=== PATIENT | female | born 1985 | race Caucasian/White ===

== ENCOUNTER 2017-03-15 05:00 | Emergency (ER) | payer OTHER ==
[~2017-03-15] VITALS: Ht 170.2 cm; Wt 88.5 kg
[~2017-03-15 05:00] MED LIST: AMIT50 PO; AMOX500 PO; AZIT250 PO; Amoxicillin500 MG PO; CEPH500 PO; CIPR500 PO; CYCL10 PO; DOXY100T53 PO; FLUO10 PO; Flagyl500 MG PO; HYDACE10B PO; HYDACE5 PO; IBUP600 PO; IBUP800 PO; LEVFLO500 PO; METR500 PO; MISO100; MULVITB&C PO; MULVITMINE PO; NAPR500; NAPR500 PO; NAPR550 PO; NITR100; OXYACE5T; OXYACE5T PO; OXYACE7.5T; PENVK500 PO; PHENA100 PO; PHENA200 PO; PRED10 PO; PRED20 PO; PRENZ PO; PROM25 PO; PROMETRIUM; RXCYCL10 PO; RXNAPNA550 PO; RXONDA4ODT MM; RXOXYACE PO; RXPHEN200 PO; STOMUL PO; SULTRIDS PO; TRAM50 PO; Vibramycin100 MG PO
[2017-03-15 05:46] LABS: BASOPHILS ABSOLUTE AUTO 0.04 K/mm3 (0.00-0.23); BASOPHILS PERCENT AUTO 0 % (0-2); EOSINOPHILS ABSOLUTE AUTO 0.05 K/mm3 (0.00-0.68); EOSINOPHILS PERCENT AUTO 1 % (0-6); Hematocrit 38.1 % (33.0-51.0); Hemoglobin 13.1 g/dL (11.5-16.0); IMMATURE GRAN ABSOLUTE AUTO 0.04 K/mm3 (0.00-0.10); IMMATURE GRAN PERCENT AUTO 0 % (0-1); LYMPHOCYTES ABSOLUTE AUTO 2.25 K/mm3 (0.84-5.20); LYMPHOCYTES PERCENT AUTO 21 % (21-46); MONOCYTES ABSOLUTE AUTO 0.87 K/mm3 (0.16-1.47); MONOCYTES PERCENT AUTO 8 % (4-13); Mean Corpuscular HGB 31.6 pg (26.0-34.0); Mean Corpuscular HGB Conc 34.4 g/dL (31.5-36.5); Mean Corpuscular Volume 92 fL (80-100); Mean Platelet Volume 10.3 fL (9.1-12.4); NEUTROPHILS ABSOLUTE AUTO 7.72 K/mm3 (1.96-9.15); NEUTROPHILS PERCENT AUTO 70 % (41-73); Platelet Count 197 K/mm3 (150-400); RDW Standard Deviation 44.2 fL (35.1-46.3); Red Blood Cell Count 4.15 M/mm3 (3.80-5.20); White Blood Cell Count 10.97 K/mm3 (4.00-11.30)
[2017-03-15 06:06] LABS: Alanine Aminotransfer (ALT/SGP 67 U/L (12-78); Albumin/Globulin Ratio 1.1 (0.8-1.8); Alk Phos 75 U/L (50-136); Anion Gap 9 mmol/L (6-16); Aspartate Aminotrans (AST/SGOT 82 U/L (12-37); Bilirubin, Total 0.5 mg/dL (0.1-1.0); Blood Urea Nitrogen 12 mg/dL (8-24); Bun/Creatinine Ratio 16.6 (12.0-20.0); CO2, Blood 26 mmol/L (21-32); Chloride, Blood 102 mmol/L (98-108); Creatinine, Blood 0.72 mg/dL (0.40-1.00); Globulin, Blood 3.7 g/dL (2.2-4.0); Glomerular Filtration Rate >60 (60-); Glucose, Blood 104 mg/dL (70-99); Sodium, Blood 137 mmol/L (136-145); Total Protein, Blood 7.7 g/dL (6.4-8.2); Troponin I <0.015 ng/mL (0.000-0.040)
[2017-03-15 06:06] LABS: Source, Urine Clean Catch
[2017-03-15 06:10] LABS: Bilirubin, Urine Neg (Neg); Blood, Urine 2+ (Neg); Glucose Qualitative, Urine Neg (Neg); Ketones, Urine 1+ (Neg); Leukocyte Esterase, Urine Neg (Neg); Nitrite, Urine Neg (Neg); Protein, Urine 2+ (Neg); Specific Gravity, Urine 1.025 (1.003-1.022); Urobilinogen, Urine 1+ (Normal)
[2017-03-15 06:27] LABS: U Amphetamine Screen Not Detected; U Barbituate Screen Not Detected; U Benzodiazapine Screen Not Detected; U Buprenorphine Screen DETECTED; U Cannabinoids Screen Not Detected; U Cocaine Screen Not Detected; U Methadone Screen Not Detected; U Methamphetamine Screen Not Detected; U Opiates Screen Not Detected; U Oxycodone Screen Not Detected; U Phencyclidine Screen Not Detected; U Propoxyphene Screen Not Detected
[2017-03-15 06:31] LABS: Appearance, Urine Cloudy (Clear); Color, Urine Yellow (P-Yellow)
[2017-03-15 06:34] LABS: Amorphous Light (0-Heavy); Red Blood Cells, Urine 0-2 /hpf (0-2); White Blood Cells, Urine Not Seen /hpf (0-5)
[2017-03-15 06:35] LABS: Bacteria Rare /hpf; Squamous Epithelial Cells Rare /hpf (Few)
== END 2017-03-15 08:01 | disposition home or self-care (01) ==
LOC: ER 05:00
PROVIDERS: Emergency Medicine
DX: R00.2 Palpitations (principal); R07.89 Other chest pain; F11.90 Opioid use, unspecified, uncomplicated; Z72.89 Other problems related to lifestyle; F17.200 Nicotine dependence, unspecified, uncomplicated; Z98.51 Tubal ligation status
CPT/HCPCS: 36415; 71046; 80053; 81001; 83880; 84484; 85025; 85379; 87086; 93005; 93010; 96374; 99283; J1885

== ENCOUNTER → 2017-05-16 | Outpatient (CLI) | payer OTHER ==
[2017-05-16 12:45] LABS: BASOPHILS ABSOLUTE AUTO 0.03 K/mm3 (0.00-0.23); BASOPHILS PERCENT AUTO 1 % (0-2); EOSINOPHILS ABSOLUTE AUTO 0.07 K/mm3 (0.00-0.68); EOSINOPHILS PERCENT AUTO 1 % (0-6); Hematocrit 41.3 % (33.0-51.0); Hemoglobin 14.2 g/dL (11.5-16.0); IMMATURE GRAN ABSOLUTE AUTO 0.01 K/mm3 (0.00-0.10); IMMATURE GRAN PERCENT AUTO 0 % (0-1); LYMPHOCYTES ABSOLUTE AUTO 1.26 K/mm3 (0.84-5.20); LYMPHOCYTES PERCENT AUTO 23 % (21-46); MONOCYTES ABSOLUTE AUTO 0.51 K/mm3 (0.16-1.47); MONOCYTES PERCENT AUTO 9 % (4-13); Mean Corpuscular HGB 32.7 pg (26.0-34.0); Mean Corpuscular HGB Conc 34.4 g/dL (31.5-36.5); Mean Corpuscular Volume 95 fL (80-100); Mean Platelet Volume 10.5 fL (9.1-12.4); NEUTROPHILS ABSOLUTE AUTO 3.67 K/mm3 (1.96-9.15); NEUTROPHILS PERCENT AUTO 66 % (41-73); Platelet Count 157 K/mm3 (150-400); RDW Standard Deviation 45.4 fL (35.1-46.3); Red Blood Cell Count 4.34 M/mm3 (3.80-5.20); White Blood Cell Count 5.55 K/mm3 (4.00-11.30)
[2017-05-16 12:54] LABS: Alanine Aminotransfer (ALT/SGP 57 U/L (12-78); Albumin, Blood 4.1 g/dL (3.4-5.0); Alk Phos 74 U/L (40-126); Anion Gap 10 mmol/L (6-16); Aspartate Aminotrans (AST/SGOT 61 U/L (12-37); Bilirubin, Total 0.5 mg/dL (0.1-1.0); Blood Urea Nitrogen 9 mg/dL (8-24); Bun/Creatinine Ratio 11.4 (12.0-20.0); CO2, Blood 29 mmol/L (21-32); Calcium, Blood 9.1 mg/dL (8.5-10.1); Chloride, Blood 102 mmol/L (98-108); Creatinine, Blood 0.79 mg/dL (0.40-1.00); Glomerular Filtration Rate >60 (60-); Glucose, Blood 99 mg/dL (70-99); Potassium, Blood 3.7 mmol/L (3.5-5.5); Sodium, Blood 141 mmol/L (136-145); Total Protein, Blood 8.1 g/dL (6.4-8.2)
== END ==
LOC: LAB EV 12:38 → LAB SHORT 12:38
PROVIDERS: Family Medicine
DX: K30 Functional dyspepsia (principal); R30.0 Dysuria
CPT/HCPCS: 80053; 83690; 85025; 87077; 87086; 87186

== ENCOUNTER → 2017-05-17 | Outpatient (CLI) | payer OTHER | END | disposition home or self-care (01) | LOC: LAB EV 09:15 | DX: K30 Functional dyspepsia (principal) | CPT/HCPCS: 87338 ==

== ENCOUNTER → 2018-01-31 | Outpatient (CLI) | payer OTHER | LOC: LAB SHORT 13:10 → LAB 13:10 | DX: R30.9 Painful micturition, unspecified (principal) | CPT/HCPCS: 87077; 87086; 87186 ==

== ENCOUNTER 2018-03-13 12:35 | Emergency (ER) | payer OTHER ==
[~2018-03-13] VITALS: Ht 170.2 cm; Wt 97.5 kg
[2018-03-13 13:11] LABS: BASOPHILS ABSOLUTE AUTO 0.03 K/mm3 (0.00-0.23); BASOPHILS PERCENT AUTO 1 % (0-2); EOSINOPHILS PERCENT AUTO 2 % (0-6); Hematocrit 38.6 % (33.0-51.0); Hemoglobin 13.2 g/dL (11.5-16.0); IMMATURE GRAN ABSOLUTE AUTO 0.01 K/mm3 (0.00-0.10); IMMATURE GRAN PERCENT AUTO 0 % (0-1); LYMPHOCYTES ABSOLUTE AUTO 2.07 K/mm3 (0.84-5.20); LYMPHOCYTES PERCENT AUTO 33 % (21-46); MONOCYTES PERCENT AUTO 6 % (4-13); Mean Corpuscular HGB 33.4 pg (26.0-34.0); Mean Corpuscular HGB Conc 34.2 g/dL (31.5-36.5); Mean Corpuscular Volume 98 fL (80-100); Mean Platelet Volume 10.4 fL (9.1-12.4); NEUTROPHILS ABSOLUTE AUTO 3.62 K/mm3 (1.96-9.15); NEUTROPHILS PERCENT AUTO 58 % (41-73); Platelet Count 167 K/mm3 (150-400); RDW Coefficient Variation 12.1 % (11.7-14.2); RDW Standard Deviation 43.8 fL (35.1-46.3); Red Blood Cell Count 3.95 M/mm3 (3.80-5.20); White Blood Cell Count 6.23 K/mm3 (4.00-11.30)
[2018-03-13 13:52] LABS: Alanine Aminotransfer (ALT/SGP 80 U/L (12-78); Albumin, Blood 3.8 g/dL (3.4-5.0); Albumin/Globulin Ratio 1.1 (0.8-1.8); Alk Phos 64 U/L (50-136); Anion Gap 10 mmol/L (6-16); Aspartate Aminotrans (AST/SGOT 75 U/L (12-37); Bilirubin, Total 0.3 mg/dL (0.1-1.0); Blood Urea Nitrogen 11 mg/dL (8-24); Bun/Creatinine Ratio 15.1 (12.0-20.0); CO2, Blood 24 mmol/L (21-32); Chloride, Blood 104 mmol/L (98-108); Creatinine, Blood 0.73 mg/dL (0.40-1.00); Globulin, Blood 3.6 g/dL (2.2-4.0); Glomerular Filtration Rate >60 (60-); Glucose, Blood 108 mg/dL (70-99); Potassium, Blood 3.2 mmol/L (3.5-5.5); Sodium, Blood 138 mmol/L (136-145); Total Protein, Blood 7.4 g/dL (6.4-8.2)
[2018-03-13] MEDS ORDERED: BUPRENORPHN-NA1 EACH SL (14:22)
== END 2018-03-13 14:55 | disposition home or self-care (01) ==
LOC: ER 12:35
PROVIDERS: Physician Assistant
DX: R07.9 Chest pain, unspecified (principal); Z79.899 Other long term (current) drug therapy; F17.210 Nicotine dependence, cigarettes, uncomplicated
CPT/HCPCS: 36415; 71046; 80053; 84484; 85025; 93005; 93010; 99285-25

== ENCOUNTER 2020-07-17 16:22 | Emergency (ER) | payer OTHER ==
[~2020-07-17] VITALS: Ht 170.2 cm; Wt 117.9 kg
[~2020-07-17 16:22] MED LIST changes: -ACET325 PO; -ALBU90OI INH; -CALYPXO HP CRE113 GM TOP; -CLON.1 PO; -Cephalexin500 M1 PO; -DEXAMETHASONE1 M1 PO; -DIPATR PO; -Florastor250 MG PO; -GABA300 PO; -GABAPENTIN600 MG PO; -HYDPAM50 PO; -Keflex500 MG PO; -METO25 PO; -MULVITA PO; -Macrobid 100 M100 MG PO; -Naltrexone HCl50 MG PO; -ONDA4ODT MM; -PANT20 PO; -POTCHL20ER PO; -TRAZ50 PO; -VISBIOME 112.51 EACH PO; -VITAMIN D31000 UNI1 PO; -XARELTO10 M5 PO
[2020-07-17 17:09] LABS: BASOPHILS ABSOLUTE AUTO 0.08 K/mm3 (0.00-0.23); BASOPHILS PERCENT AUTO 1 % (0-2); EOSINOPHILS ABSOLUTE AUTO 0.06 K/mm3 (0.00-0.68); EOSINOPHILS PERCENT AUTO 0 % (0-6); Hematocrit 41.4 % (33.0-51.0); Hemoglobin 13.7 g/dL (11.5-16.0); IMMATURE GRAN ABSOLUTE AUTO 0.07 K/mm3 (0.00-0.10); IMMATURE GRAN PERCENT AUTO 1 % (0-1); LYMPHOCYTES ABSOLUTE AUTO 2.33 K/mm3 (0.84-5.20); LYMPHOCYTES PERCENT AUTO 15 % (21-46); MONOCYTES ABSOLUTE AUTO 1.31 K/mm3 (0.16-1.47); MONOCYTES PERCENT AUTO 9 % (4-13); Mean Corpuscular HGB 31.9 pg (26.0-34.0); Mean Corpuscular HGB Conc 33.1 g/dL (31.5-36.5); Mean Corpuscular Volume 97 fL (80-100); Mean Platelet Volume 10.4 fL (9.1-12.4); NEUTROPHILS ABSOLUTE AUTO 11.38 K/mm3 (1.96-9.15); NEUTROPHILS PERCENT AUTO 75 % (41-73); Platelet Count 204 K/mm3 (150-400); RDW Coefficient Variation 19.9 % (11.7-14.2); Red Blood Cell Count 4.29 M/mm3 (3.80-5.20); White Blood Cell Count 15.23 K/mm3 (4.00-11.30)
[2020-07-17 17:33] LABS: Alanine Aminotransfer (ALT/SGP 29 U/L (12-78); Albumin, Blood 2.6 g/dL (3.4-5.0); Albumin/Globulin Ratio 0.5 (0.8-1.8); Alk Phos 174 U/L (50-136); Anion Gap 9 mmol/L (6-16); Aspartate Aminotrans (AST/SGOT 244 U/L (12-37); Bilirubin, Total 3.4 mg/dL (0.1-1.0); Blood Urea Nitrogen 7 mg/dL (8-24); Bun/Creatinine Ratio 12.5 (12.0-20.0); CO2, Blood 31 mmol/L (21-32); Calcium, Blood 8.9 mg/dL (8.5-10.1); Chloride, Blood 93 mmol/L (98-108); Creatinine, Blood 0.56 mg/dL (0.40-1.00); Globulin, Blood 5.7 g/dL (2.2-4.0); Glomerular Filtration Rate >60 (60-); Glucose, Blood 110 mg/dL (70-99); Potassium, Blood 3.9 mmol/L (3.5-5.5); Sodium, Blood 133 mmol/L (136-145); Total Protein, Blood 8.3 g/dL (6.4-8.2)
[2020-07-17 21:07] LABS: Source, Urine Clean Catch
[2020-07-17 21:27] LABS: Blood, Urine 1+ (Neg); Glucose Qualitative, Urine Neg (Neg); Ketones, Urine 2+ (Neg); Leukocyte Esterase, Urine 1+ (Neg); Nitrite, Urine Pos (Neg); Protein, Urine 2+ (Neg); Urobilinogen, Urine 4+ (Normal)
[2020-07-17 21:33] LABS: Appearance, Urine Hazy (Clear); Bilirubin, Urine 2+ (Neg); Color, Urine Amber (P-Yellow)
[2020-07-17 21:35] LABS: Bacteria Mod /hpf; Red Blood Cells, Urine Rare /hpf (0-2); Spermatozoa Mod /hpf; Squamous Epithelial Cells Few /hpf (Few)
[2020-07-17 21:37] LABS: U Amphetamine Screen Not Detected; U Methamphetamine Screen DETECTED
[2020-07-17 21:38] LABS: U Barbituate Screen Not Detected; U Benzodiazapine Screen Not Detected; U Buprenorphine Screen DETECTED; U Cannabinoids Screen Not Detected; U Cocaine Screen Not Detected; U Methadone Screen Not Detected; U Opiates Screen DETECTED; U Oxycodone Screen Not Detected; U Phencyclidine Screen Not Detected; U Propoxyphene Screen Not Detected
[2020-07-17] MEDS ORDERED: ONDA4ODT MM (22:11)
[2020-07-17] MEDS ORDERED: Macrobid 100 M100 MG PO (22:11)
== END 2020-07-17 22:25 | disposition home or self-care (01) ==
LOC: ER 16:22
PROVIDERS: Physician Assistant; Student in an Organized Health Care Education/Training Program
DX: F10.139 Alcohol abuse with withdrawal, unspecified (principal); N39.0 Urinary tract infection, site not specified; F17.210 Nicotine dependence, cigarettes, uncomplicated; Z79.899 Other long term (current) drug therapy
CPT/HCPCS: 76705; 80053; 81001; 83690; 85025; 87077; 87086; 87186; 93005; 93010; 99284-25; A9270; G0480; J7030

== ENCOUNTER → 2020-07-17 | Outpatient (CLI) | payer OTHER ==
[~2020-07-17] MED LIST changes: +ACET325 PO; +ALBU90OI INH; +BUPRENORPHN-NA1 EACH SL; +CALYPXO HP CRE113 GM TOP; +CLON.1 PO; +Cephalexin500 M1 PO; +DEXAMETHASONE1 M1 PO; +DIPATR PO; +Florastor250 MG PO; +GABA300 PO; +GABAPENTIN600 MG PO; +HYDPAM50 PO; +Keflex500 MG PO; +METO25 PO; +MULVITA PO; +Macrobid 100 M100 MG PO; +Naltrexone HCl50 MG PO; +ONDA4ODT MM; +PANT20 PO; +POTCHL20ER PO; +TRAZ50 PO; +VISBIOME 112.51 EACH PO; +VITAMIN D31000 UNI1 PO; +XARELTO10 M5 PO
== END | disposition home or self-care (01) ==
LOC: LAB SHORT 16:29 → LAB EV 16:29
DX: N39.0 Urinary tract infection, site not specified (principal)
CPT/HCPCS: 87077; 87086; 87186

== ENCOUNTER 2020-07-23 12:03 | Inpatient (IN) | payer OTHER ==
[~2020-07-23] VITALS: Ht 167.6 cm; Wt 104.5 kg
[~2020-07-23 12:03] MED LIST changes: +Macrobid 100 M100 MG PO; +ONDA4ODT MM
[2020-07-23 13:16] LABS: BASOPHILS ABSOLUTE AUTO 0.09 K/mm3 (0.00-0.23); BASOPHILS PERCENT AUTO 1 % (0-2); EOSINOPHILS ABSOLUTE AUTO 0.08 K/mm3 (0.00-0.68); EOSINOPHILS PERCENT AUTO 1 % (0-6); Hematocrit 42.4 % (33.0-51.0); Hemoglobin 13.8 g/dL (11.5-16.0); IMMATURE GRAN ABSOLUTE AUTO 0.05 K/mm3 (0.00-0.10); IMMATURE GRAN PERCENT AUTO 0 % (0-1); LYMPHOCYTES ABSOLUTE AUTO 2.22 K/mm3 (0.84-5.20); LYMPHOCYTES PERCENT AUTO 17 % (21-46); MONOCYTES ABSOLUTE AUTO 1.21 K/mm3 (0.16-1.47); MONOCYTES PERCENT AUTO 9 % (4-13); Mean Corpuscular HGB 31.9 pg (26.0-34.0); Mean Corpuscular HGB Conc 32.5 g/dL (31.5-36.5); Mean Corpuscular Volume 98 fL (80-100); Mean Platelet Volume 10.7 fL (9.1-12.4); NEUTROPHILS ABSOLUTE AUTO 9.42 K/mm3 (1.96-9.15); NEUTROPHILS PERCENT AUTO 72 % (41-73); Platelet Count 245 K/mm3 (150-400); RDW Coefficient Variation 18.5 % (11.7-14.2); RDW Standard Deviation 66.4 fL (35.1-46.3); Red Blood Cell Count 4.33 M/mm3 (3.80-5.20); White Blood Cell Count 13.07 K/mm3 (4.00-11.30)
[2020-07-23 13:34] LABS: Alanine Aminotransfer (ALT/SGP 34 U/L (12-78); Albumin, Blood 3.1 g/dL (3.4-5.0); Albumin/Globulin Ratio 0.6 (0.8-1.8); Alk Phos 145 U/L (50-136); Anion Gap 6 mmol/L (6-16); Aspartate Aminotrans (AST/SGOT 292 U/L (12-37); Bilirubin, Total 3.5 mg/dL (0.1-1.0); Blood Urea Nitrogen 9 mg/dL (8-24); Bun/Creatinine Ratio 15.3 (12.0-20.0); CO2, Blood 32 mmol/L (21-32); Calcium, Blood 9.4 mg/dL (8.5-10.1); Chloride, Blood 95 mmol/L (98-108); Creatinine, Blood 0.59 mg/dL (0.40-1.00); Globulin, Blood 5.5 g/dL (2.2-4.0); Glomerular Filtration Rate >60 (60-); Glucose, Blood 106 mg/dL (70-99); Potassium, Blood 3.4 mmol/L (3.5-5.5); Sodium, Blood 133 mmol/L (136-145); Total Protein, Blood 8.6 g/dL (6.4-8.2)
[2020-07-23 15:57] LABS: Source, Urine Clean Catch
[2020-07-23 16:10] LABS: Appearance, Urine Hazy (Clear); Blood, Urine 1+ (Neg); Color, Urine Brown (P-Yellow); Glucose Qualitative, Urine Neg (Neg); Ketones, Urine 3+ (Neg); Leukocyte Esterase, Urine 1+ (Neg); Nitrite, Urine Pos (Neg); Protein, Urine 2+ (Neg); Urobilinogen, Urine 3+ (Normal)
[2020-07-23 16:27] LABS: Bilirubin, Urine 2+ (Neg)
[2020-07-23 16:29] LABS: Bacteria Many /hpf; Mucus Light (0-Heavy); Squamous Epithelial Cells Mod /hpf (Few); Transitional Epithelial Cells Few /hpf (0-Rare)
--- NOTE | 2020-07-23 19:45 | NUR ---
ARRIVAL NOTE RECEIVED HAND OFF FROM Courtney JACKSON RN USING SBAR. TRANSPORTED TO 306 VIA WHEELCHAIR, TOLERATED WELL. MED NO TELE STATUS. AAO X4, MARTÍNEZ, FOLLOWS ALL COMMANDS. ORIENTED TO ROOM, CALL SYSTEM, AND POC, VOICES UNDERSTANDING. RESPIRATIONS EVEN AND UNLABORED ON ROOM AIR. LUNG SOUNDS CLEAR BILATERALLY. ABDOMEN SOFT AND NONDISTENDED. BOWEL TONES NOTED IN ALL QUADS. CONTINENT OF BOWEL AND BLADDER, USES BSC. REPORTED LAST BM 1 WEEK AGO, PASSING FLATUS. SELF MEDICATED WITH OTC STOOL SOFTENERS WITHOUT RESULTS. LEFT AC 20 PIV IS PATENT, FLUSHING WITH EASE WHILE INFUSING A BANANA BAG AT 200ML/HR. C/O BUE/BLE WITH SEVERE N/T, TO WHERE SHE CAN NOT FEEL HER HANDS OR FEET. REPORTS FALLS AT HOME. REPORTEDLY WEANED SELF FROM ETOH OVER SEVERAL DAYS TWO WEEKS AGO D/T ABD PAIN WHEN DRINKING. DENIES FURTHER PAIN, DISCOMFORT, OR FURTHER NEEDS AT THIS TIME. ADMISSION ASSESSMENT IN PROGRESS. SAFETY MEASURES IN PLACE. WILL CONTINUE TO MONITOR AND ADDRESS NEEDS AND CONCERNS THEY ARISE.
[2020-07-24 04:38] LABS: Hematocrit 38.4 % (33.0-51.0); Hemoglobin 12.8 g/dL (11.5-16.0); Mean Corpuscular HGB Conc 33.3 g/dL (31.5-36.5); Mean Corpuscular Volume 96 fL (80-100); Mean Platelet Volume 10.6 fL (9.1-12.4); Platelet Count 234 K/mm3 (150-400); RDW Standard Deviation 63.2 fL (35.1-46.3); White Blood Cell Count 12.01 K/mm3 (4.00-11.30)
[2020-07-24 05:00] LABS: Alanine Aminotransfer (ALT/SGP 31 U/L (12-78); Albumin, Blood 2.8 g/dL (3.4-5.0); Albumin/Globulin Ratio 0.6 (0.8-1.8); Alk Phos 127 U/L (50-136); Anion Gap 6 mmol/L (6-16); Aspartate Aminotrans (AST/SGOT 242 U/L (12-37); Blood Urea Nitrogen 8 mg/dL (8-24); Bun/Creatinine Ratio 13.3 (12.0-20.0); CO2, Blood 29 mmol/L (21-32); Calcium, Blood 8.6 mg/dL (8.5-10.1); Chloride, Blood 99 mmol/L (98-108); Globulin, Blood 4.7 g/dL (2.2-4.0); Glomerular Filtration Rate >60 (60-); Glucose, Blood 94 mg/dL (70-99); Potassium, Blood 3.5 mmol/L (3.5-5.5); Sodium, Blood 134 mmol/L (136-145); Total Protein, Blood 7.5 g/dL (6.4-8.2)
--- NOTE | 2020-07-24 16:48 | NUR ---
SATS ARE BETWEEN 85-89% ON ROOM AIR, PT MORE TIRED ?DUE TO INCREASED GABAPENTIN. PLACED PT ON 2L OXYGEN, SATS AT 94% ON 2L OXYGEN. CALLED DR MAURO, HE WANTS MIVF STOPPED AND HOB RAISED. WCTM
--- NOTE | 2020-07-24 19:00 | NUR ---
SHIFT SUMMARY TOBY WAS PAINFUL THIS SHIFT, GOT GABAPENTIN WHICH MADE HER DROWSY IN THE AFTERNOON. SATS DOWN TO HIGH 80S, PUT ON 2L OXYGEN. MIVF STOPPED PER DR MAURO. TELE DC'D. SBA TO BSC, BED ALARM ON, PT HAS URGENCY/FREQUENCY. STATES SHE HASN'T HAD A BM IN OVER A WEEK, DR MAURO CALLED AND BM PROTOCOL ORDERED. CALL [facility] IN [place], [facility]
--- NOTE | 2020-07-25 04:50 | NUR ---
SHIFT SUMMARY ASSUMED CARE OF PT AT 1900. PT IS A/OX4. HEART SOUNDS REGULAR.LUNG SOUNDS CLEAR. PT A 1P MINIMAL ASSIST TO BATHROOM WITH WALKER. PT IS CONTIENT ON BLADDER, PT STILL HAS NOT HAD A BM. PT C/O N/T IN HAND AND LEGS THAT MAKE IT DIFFICULT FOR HER TO GRAB OBJECTS AND WALK. CALL LIGHT IN REACH, BED IN LOWEST POSITON.
[2020-07-25 05:26] LABS: Alanine Aminotransfer (ALT/SGP 26 U/L (12-78); Albumin, Blood 2.5 g/dL (3.4-5.0); Albumin/Globulin Ratio 0.6 (0.8-1.8); Alk Phos 120 U/L (50-136); Anion Gap 5 mmol/L (6-16); Aspartate Aminotrans (AST/SGOT 213 U/L (12-37); Bilirubin, Total 2.4 mg/dL (0.1-1.0); Blood Urea Nitrogen 8 mg/dL (8-24); Bun/Creatinine Ratio 15.2 (12.0-20.0); CO2, Blood 28 mmol/L (21-32); Calcium, Blood 8.6 mg/dL (8.5-10.1); Chloride, Blood 103 mmol/L (98-108); Creatinine, Blood 0.53 mg/dL (0.40-1.00); Globulin, Blood 4.5 g/dL (2.2-4.0); Glomerular Filtration Rate >60 (60-); Glucose, Blood 98 mg/dL (70-99); Potassium, Blood 3.6 mmol/L (3.5-5.5); Sodium, Blood 136 mmol/L (136-145)
--- NOTE | 2020-07-25 18:41 | NUR ---
SHIFT SUMMARY PT UP TO BSC WITH WALKER AND GAIT BELT. SEVERE NEUROPATHY, VERY PAINFUL AND N/T PRESENT IN FEET AND HANDS. HAD BM IN TOILET. CALLED APPROPRIATELY THIS SHIFT. PT CAME AND ASSESSED. POSSIBLE DC HOME TOMORROW W/ BROTHER TO STAY WITH HER FOR A FEW DAYS. CALL LIGHT IN REACH, TM
--- NOTE | 2020-07-26 04:48 | NUR ---
SHIFT SUMMARY ASSUMED CARE OF PT AT 1900. PT IS A/OX4. HEART SOUNDS REGULAR, LUNG SOUND SCLEAR. PT IS CONTIENT TO BATHROOM. T IS A 1P SBA WITH WALKER. PT WAS INCREDIBLE PAIN DURING THE NIGHT. ONE TIME DOSE OF OXYCODONE GIVEN WITHOUT RELEIF. NOTIFIED HOSPITALIST WHO SAID TO GIVE THE PATIENT KENA HOSE. PT WAS ABLE T FINALLY SLEEP AFTER THIS AND SAID THAT THEY WORK VERY WELL. NO OTHER ACUTE EVENTS. CALL LIGHT IN REACH, BED IN LOWEST POSITION.
[2020-07-26 05:02] LABS: Anion Gap 4 mmol/L (6-16); Blood Urea Nitrogen 7 mg/dL (8-24); Bun/Creatinine Ratio 12.9 (12.0-20.0); CO2, Blood 30 mmol/L (21-32); Calcium, Blood 8.6 mg/dL (8.5-10.1); Chloride, Blood 103 mmol/L (98-108); Creatinine, Blood 0.54 mg/dL (0.40-1.00); Glomerular Filtration Rate >60 (60-); Glucose, Blood 97 mg/dL (70-99); Magnesium, Blood 1.9 mg/dL (1.6-2.4); Potassium, Blood 3.8 mmol/L (3.5-5.5); Sodium, Blood 137 mmol/L (136-145)
[2020-07-26 08:18] LABS: Alanine Aminotransfer (ALT/SGP 25 U/L (12-78); Albumin, Blood 2.6 g/dL (3.4-5.0); Albumin/Globulin Ratio 0.6 (0.8-1.8); Alk Phos 112 U/L (50-136); Anion Gap 5 mmol/L (6-16); Aspartate Aminotrans (AST/SGOT 206 U/L (12-37); Bilirubin, Total 2.1 mg/dL (0.1-1.0); Blood Urea Nitrogen 8 mg/dL (8-24); Bun/Creatinine Ratio 15.6 (12.0-20.0); CO2, Blood 29 mmol/L (21-32); Calcium, Blood 8.7 mg/dL (8.5-10.1); Chloride, Blood 104 mmol/L (98-108); Creatinine, Blood 0.51 mg/dL (0.40-1.00); Globulin, Blood 4.4 g/dL (2.2-4.0); Glomerular Filtration Rate >60 (60-); Glucose, Blood 96 mg/dL (70-99); Potassium, Blood 3.8 mmol/L (3.5-5.5); Sodium, Blood 138 mmol/L (136-145)
[2020-07-26] MEDS ORDERED: Florastor250 MG PO (13:43)
[2020-07-26] MEDS ORDERED: GABA300 PO (13:43)
[2020-07-26] MEDS ORDERED: LEVFLO500 PO (13:44)
[2020-07-26] MEDS ORDERED: MULVITA PO (13:46)
--- NOTE | 2020-07-26 16:22 | NUR ---
DISCHARGE SUMMARY PT DISCHARGE TO HOME VIA WC. PT PACKET GIVEN TO PT AND INSTRUCTED TO CALL PCP TO FOLLOW UP APPOINTMENT WITHIN A WEEK. MEDS SENT TO [facility]; PT SCRIPT FOR FWW AND WAS FAXED TO [facility]. PT INSTRUCTED TO DO THE LAB TEST FOR THYROID WITHIN A WEEK AFTER SHE SEE HER PCP. IV DC'D. VALUABLE ITEMS WITH PT. PT ALSO INSTRUCTED FALL PREVENTION AT HOME; AND RIGHT USE OF FWW. PT EDUCATED ABOUT NEW MEDICATION AND SIDE EFFECTS WITH PRINTED PACKET.
== END 2020-07-26 16:18 | disposition home or self-care (01) | DRG 872 ==
LOC: ER 12:03 → MEDS 17:00
PROVIDERS: Physician Assistant; ADMIT Internal Medicine
DX: A41.81 Sepsis due to Enterococcus (principal); N10 Acute pyelonephritis; E87.1 Hypo-osmolality and hyponatremia; F10.20 Alcohol dependence, uncomplicated; K70.10 Alcoholic hepatitis without ascites; E87.6 Hypokalemia; F15.10 Other stimulant abuse, uncomplicated
CPT/HCPCS: 36415; 80048; 80053; 81001; 82607; 82746; 83605; 83735; 84439; 84443; 85025; 85027; 85651; 86140; 87040; 87077; 87086; 87186; 96365; 97110; 97161; 99285-25; A9270; J0696; J3411; J3475; J7030; J7042

== ENCOUNTER 2020-09-01 22:47 | Emergency (ER) | payer OTHER ==
[~2020-09-01] VITALS: Ht 162.6 cm; Wt 117.9 kg
[~2020-09-01 22:47] MED LIST changes: +Florastor250 MG PO; +GABA300 PO; +MULVITA PO
[2020-09-02 00:52] LABS: Source, Urine Clean Catch
[2020-09-02 00:53] LABS: BASOPHILS ABSOLUTE AUTO 0.08 K/mm3 (0.00-0.23); BASOPHILS PERCENT AUTO 1 % (0-2); EOSINOPHILS ABSOLUTE AUTO 0.15 K/mm3 (0.00-0.68); EOSINOPHILS PERCENT AUTO 2 % (0-6); Hematocrit 38.9 % (33.0-51.0); Hemoglobin 13.2 g/dL (11.5-16.0); IMMATURE GRAN ABSOLUTE AUTO 0.06 K/mm3 (0.00-0.10); IMMATURE GRAN PERCENT AUTO 1 % (0-1); LYMPHOCYTES ABSOLUTE AUTO 3.61 K/mm3 (0.84-5.20); LYMPHOCYTES PERCENT AUTO 35 % (21-46); MONOCYTES ABSOLUTE AUTO 0.97 K/mm3 (0.16-1.47); MONOCYTES PERCENT AUTO 9 % (4-13); Mean Corpuscular HGB 31.6 pg (26.0-34.0); Mean Corpuscular HGB Conc 33.9 g/dL (31.5-36.5); Mean Corpuscular Volume 93 fL (80-100); NEUTROPHILS ABSOLUTE AUTO 5.44 K/mm3 (1.96-9.15); NEUTROPHILS PERCENT AUTO 53 % (41-73); RDW Coefficient Variation 15.2 % (11.7-14.2); RDW Standard Deviation 52.3 fL (35.1-46.3); Red Blood Cell Count 4.18 M/mm3 (3.80-5.20); White Blood Cell Count 10.31 K/mm3 (4.00-11.30)
[2020-09-02 00:55] LABS: Appearance, Urine Hazy (Clear); Blood, Urine 2+ (Neg); Color, Urine Amber (P-Yellow); Glucose Qualitative, Urine Neg (Neg); Ketones, Urine 1+ (Neg); Leukocyte Esterase, Urine 2+ (Neg); Nitrite, Urine Pos (Neg); Protein, Urine 2+ (Neg); Urobilinogen, Urine 2+ (Normal)
[2020-09-02 00:56] LABS: Mean Platelet Volume 12.3 fL (9.1-12.4); Platelet Count 129 K/mm3 (150-400)
[2020-09-02 00:57] LABS: Bilirubin, Urine 2+ (Neg)
[2020-09-02 01:03] LABS: Bacteria Many /hpf; Red Blood Cells, Urine 0-2 /hpf (0-2); Squamous Epithelial Cells Many /hpf (Few)
[2020-09-02 01:05] LABS: Alanine Aminotransfer (ALT/SGP 42 U/L (12-78); Albumin, Blood 3.4 g/dL (3.4-5.0); Albumin/Globulin Ratio 0.8 (0.8-1.8); Alk Phos 89 U/L (50-136); Anion Gap 12 mmol/L (6-16); Aspartate Aminotrans (AST/SGOT 220 U/L (12-37); Bilirubin, Total 1.2 mg/dL (0.1-1.0); Blood Urea Nitrogen 7 mg/dL (8-24); Bun/Creatinine Ratio 13.9 (12.0-20.0); CO2, Blood 25 mmol/L (21-32); Calcium, Blood 8.9 mg/dL (8.5-10.1); Chloride, Blood 106 mmol/L (98-108); Globulin, Blood 4.3 g/dL (2.2-4.0); Glomerular Filtration Rate >60 (60-); Glucose, Blood 114 mg/dL (70-99); Potassium, Blood 3.6 mmol/L (3.5-5.5); Sodium, Blood 143 mmol/L (136-145); Total Protein, Blood 7.7 g/dL (6.4-8.2)
[2020-09-02 01:08] LABS: U Amphetamine Screen Not Detected; U Barbituate Screen Not Detected; U Benzodiazapine Screen Not Detected; U Buprenorphine Screen DETECTED; U Cannabinoids Screen Not Detected; U Cocaine Screen Not Detected; U Methadone Screen Not Detected; U Methamphetamine Screen Not Detected; U Opiates Screen Not Detected; U Oxycodone Screen Not Detected; U Phencyclidine Screen Not Detected; U Propoxyphene Screen Not Detected
[2020-09-02] MEDS ORDERED: Keflex500 MG PO (01:23)
== END 2020-09-02 02:16 | disposition home or self-care (01) ==
LOC: ER 22:47
PROVIDERS: Emergency Medicine
DX: N39.0 Urinary tract infection, site not specified (principal); F10.129 Alcohol abuse with intoxication, unspecified; F17.210 Nicotine dependence, cigarettes, uncomplicated; Z79.899 Other long term (current) drug therapy
CPT/HCPCS: 36415; 80053; 81001; 81025; 85025; 87077; 87086; 87186; 99284; A9270; G0480

== ENCOUNTER 2020-09-08 12:11 | Inpatient (IN) | payer OTHER ==
[~2020-09-08] VITALS: Ht 170.2 cm; Wt 91.3 kg
[~2020-09-08 12:11] MED LIST changes: +Keflex500 MG PO
[2020-09-08 13:10] LABS: BASOPHILS ABSOLUTE AUTO 0.02 K/mm3 (0.00-0.23); BASOPHILS PERCENT AUTO 1 % (0-2); EOSINOPHILS ABSOLUTE AUTO 0.02 K/mm3 (0.00-0.68); EOSINOPHILS PERCENT AUTO 1 % (0-6); Hematocrit 35.9 % (33.0-51.0); Hemoglobin 11.9 g/dL (11.5-16.0); IMMATURE GRAN PERCENT AUTO 0 % (0-1); LYMPHOCYTES ABSOLUTE AUTO 0.78 K/mm3 (0.84-5.20); LYMPHOCYTES PERCENT AUTO 27 % (21-46); MONOCYTES ABSOLUTE AUTO 0.28 K/mm3 (0.16-1.47); MONOCYTES PERCENT AUTO 10 % (4-13); Mean Corpuscular HGB 31.6 pg (26.0-34.0); Mean Corpuscular HGB Conc 33.1 g/dL (31.5-36.5); Mean Corpuscular Volume 96 fL (80-100); Mean Platelet Volume 12.1 fL (9.1-12.4); NEUTROPHILS ABSOLUTE AUTO 1.81 K/mm3 (1.96-9.15); NEUTROPHILS PERCENT AUTO 62 % (41-73); NRBC ABSOLUTE 0.02 K/mm3 (0.00-0.02); NRBC Auto 0.7 /100 WBC (0.0-0.2); Platelet Count 67 K/mm3 (150-400); RDW Coefficient Variation 14.8 % (11.7-14.2); RDW Standard Deviation 51.4 fL (35.1-46.3); Red Blood Cell Count 3.76 M/mm3 (3.80-5.20); White Blood Cell Count 2.91 K/mm3 (4.00-11.30)
[2020-09-08 13:17] LABS: Alanine Aminotransfer (ALT/SGP 33 U/L (12-78); Albumin, Blood 3.6 g/dL (3.4-5.0); Albumin/Globulin Ratio 0.9 (0.8-1.8); Alk Phos 85 U/L (50-136); Anion Gap 8 mmol/L (6-16); Aspartate Aminotrans (AST/SGOT 165 U/L (12-37); Blood Urea Nitrogen 6 mg/dL (8-24); Bun/Creatinine Ratio 9.5 (12.0-20.0); CO2, Blood 30 mmol/L (21-32); Calcium, Blood 9.8 mg/dL (8.5-10.1); Chloride, Blood 98 mmol/L (98-108); Creatinine, Blood 0.63 mg/dL (0.40-1.00); Globulin, Blood 4.1 g/dL (2.2-4.0); Glomerular Filtration Rate >60 (60-); Glucose, Blood 100 mg/dL (70-99); Potassium, Blood 3.1 mmol/L (3.5-5.5); Sodium, Blood 136 mmol/L (136-145); Total Protein, Blood 7.7 g/dL (6.4-8.2)
[2020-09-08] MEDS ORDERED: GABAPENTIN600 MG PO (13:18)
[2020-09-08 15:41] LABS: Source, Urine Clean Catch
[2020-09-08 15:45] LABS: Blood, Urine 1+ (Neg); Color, Urine Amber (P-Yellow); Glucose Qualitative, Urine Neg (Neg); Ketones, Urine 4+ (Neg); Leukocyte Esterase, Urine 2+ (Neg); Nitrite, Urine Pos (Neg); Protein, Urine 2+ (Neg); Specific Gravity, Urine 1.025 (1.003-1.022); Urobilinogen, Urine 1+ (Normal)
[2020-09-08 15:51] LABS: Appearance, Urine Hazy (Clear); Bilirubin, Urine 2+ (Neg)
[2020-09-08 15:55] LABS: Bacteria Many /hpf; Mucus Light (0-Heavy); Red Blood Cells, Urine 0-2 /hpf (0-2); Squamous Epithelial Cells Many /hpf (Few)
[2020-09-08] MEDS ORDERED: Naltrexone HCl50 MG PO (18:56)
[2020-09-08] MEDS ORDERED: Cephalexin500 M1 PO (18:56)
[2020-09-08] MEDS ORDERED: HYDPAM50 PO (18:57)
[2020-09-08] MEDS ORDERED: CLON.1 PO (18:58)
[2020-09-08] MEDS ORDERED: PROM25 PO (18:59)
[2020-09-08] MEDS ORDERED: METO25 PO (18:59)
[2020-09-08] MEDS ORDERED: TRAZ50 PO (19:05)
[2020-09-08 20:15] LABS: Hematocrit 33.2 % (33.0-51.0); Hemoglobin 10.9 g/dL (11.5-16.0); Mean Corpuscular HGB 31.6 pg (26.0-34.0); Mean Corpuscular HGB Conc 32.8 g/dL (31.5-36.5); Mean Corpuscular Volume 96 fL (80-100); Mean Platelet Volume 12.4 fL (9.1-12.4); Platelet Count 59 K/mm3 (150-400); RDW Standard Deviation 52.2 fL (35.1-46.3); Red Blood Cell Count 3.45 M/mm3 (3.80-5.20); White Blood Cell Count 2.47 K/mm3 (4.00-11.30)
--- NOTE | 2020-09-08 22:00 | NUR ---
ADMITTED TO FLOOR FROM THE ED WITH DX OF INTRACTABLE N/V. ED RN REPORTED PT HAD RECENT STAY AT [facility] PRIOR TO ADMISSION, HAD RIGHT ABD PAIN X 2 WKS AND S/S WORSENED AND CAME TO THE ED FOR TREATMENT. ALERT AND ORIENTED X 4. ORIENTED TO USE OF CALL LIGHT. CALL LIGHT IN REACH. AGREES TO USE CALL LIGHT PRIOR TO GETTING OOB.
--- NOTE | 2020-09-08 22:39 | NUR ---
"SHAHEEN" FROM "[facility]" CALLED RE "UPDATE" ON PT CONDITION. PT GAVE VERBAL AGREEMENT TO ALLOW INFO TO BE DISCUSSED WITH THEM. UP DATE GIVEN. PT HAS CALL LIGHT IN REACH. IVF INFUSING
--- NOTE | 2020-09-08 23:58 | NUR ---
ASSISTED UP TO THE RESTROOM, BM, STOOL SAMPLE SENT TO LAB FOR PROCESSING TO R/O C DIFF. VOICED NAUSEA BETTER POST ZOFRAN MED. CALL LIGHT IN REACH
[2020-09-09 00:50] LABS: C DIFFICILE DNA NEGATIVE (Negative)
[2020-09-09 01:51] LABS: SARS-Cov-2 (COVID-19) PCR, MMC POSITIVE (NEGATIVE)
--- NOTE | 2020-09-09 02:15 | NUR ---
POSITIVE COVID RESULTS, PLACED ON DROPLET PREC PER MD ORDERS -
--- NOTE | 2020-09-09 03:11 | NUR ---
CHARGE NURSE REPORTS THAT PT WAS IN REHAB, BUT [facility]OX S/S WAS SO SEVERE SHE WAS TRANSFERRED TO [facility] ED FOR TREATMENT.
[2020-09-09 05:39] LABS: BASOPHILS ABSOLUTE AUTO 0.01 K/mm3 (0.00-0.23); BASOPHILS PERCENT AUTO 0 % (0-2); EOSINOPHILS PERCENT AUTO 0 % (0-6); Hematocrit 31.4 % (33.0-51.0); Hemoglobin 10.6 g/dL (11.5-16.0); IMMATURE GRAN ABSOLUTE AUTO 0.01 K/mm3 (0.00-0.10); IMMATURE GRAN PERCENT AUTO 0 % (0-1); LYMPHOCYTES ABSOLUTE AUTO 0.86 K/mm3 (0.84-5.20); LYMPHOCYTES PERCENT AUTO 21 % (21-46); MONOCYTES ABSOLUTE AUTO 0.45 K/mm3 (0.16-1.47); MONOCYTES PERCENT AUTO 11 % (4-13); Mean Corpuscular HGB 31.5 pg (26.0-34.0); Mean Corpuscular HGB Conc 33.8 g/dL (31.5-36.5); Mean Corpuscular Volume 94 fL (80-100); Mean Platelet Volume 12.5 fL (9.1-12.4); NEUTROPHILS ABSOLUTE AUTO 2.78 K/mm3 (1.96-9.15); NEUTROPHILS PERCENT AUTO 68 % (41-73); Platelet Count 66 K/mm3 (150-400); RDW Coefficient Variation 14.9 % (11.7-14.2); RDW Standard Deviation 51.2 fL (35.1-46.3); Red Blood Cell Count 3.36 M/mm3 (3.80-5.20); White Blood Cell Count 4.11 K/mm3 (4.00-11.30)
--- NOTE | 2020-09-09 05:39 | NUR ---
ELECTRICAL MANUFACTURING ENGINEER SUMMARY ADMITTED AT SHIFT COMMENCE WITH SEVERE NAUSEA AND VOMITING. IV MEDS AND FLUIDS ADMINISTERED. STOOL SPECIMEN FOR R/O C-DIFF SENT AND LATER IN THE SHIFT LAB REQUESTED A SWAB FOR COVID THAT HADNT BEEN DONE IN THE ED. SWAB SENT TO LAB, CAME BACK POSITIVE. PLACED ON DROPLET PRECAUTIONS PER MD ORDERS. ANALGESICS AND ANTIEMETICS ADMINISTERED - SEE MAR FOR DETAILS. CALL LIGHT IN REACH.
[2020-09-09 06:22] LABS: Alanine Aminotransfer (ALT/SGP 26 U/L (12-78); Albumin, Blood 3.1 g/dL (3.4-5.0); Albumin/Globulin Ratio 0.8 (0.8-1.8); Alk Phos 70 U/L (50-136); Anion Gap 6 mmol/L (6-16); Aspartate Aminotrans (AST/SGOT 122 U/L (12-37); Bilirubin, Total 1.4 mg/dL (0.1-1.0); Blood Urea Nitrogen 7 mg/dL (8-24); Bun/Creatinine Ratio 13.5 (12.0-20.0); CO2, Blood 27 mmol/L (21-32); Calcium, Blood 8.4 mg/dL (8.5-10.1); Chloride, Blood 105 mmol/L (98-108); Creatinine, Blood 0.52 mg/dL (0.40-1.00); Globulin, Blood 3.8 g/dL (2.2-4.0); Glomerular Filtration Rate >60 (60-); Glucose, Blood 125 mg/dL (70-99); Sodium, Blood 138 mmol/L (136-145); Total Protein, Blood 6.9 g/dL (6.4-8.2)
--- NOTE | 2020-09-09 10:37 | NUR ---
RECEIVED PHONE CALL FROM LINH SADLER FROM [facility] REQUESTING FOR UPDATES IN REGARDS TO PATIENT. PATIENT VERBALIZED AND SIGNED CONSENT TO PROVIDE HEALTH INFO. TO [facility]. PROVIDED UPDATES TO [facility].
[2020-09-09 15:49] LABS: Magnesium, Blood 1.6 mg/dL (1.6-2.4)
[2020-09-09 17:11] LABS: PCO2 Arterial 39.6 mmHg (35-45); pH Blood Arterial 7.48 (7.35-7.45)
[2020-09-09 17:17] LABS: PO2 Arterial 48 mmHg (80-100)
--- NOTE | 2020-09-09 17:19 | NUR ---
THIS RN WAS NOTIFIED BY RT JORGE OF PT's ABG RESULTS, RT RECOMMMENDED TO INCREASE PT's O2 FROM 2LPM TO 4LPM VIA NC. NOTIFIED DR. ROCKWELL OF THE ABOVE, NO FURTHER ORDERS NOTED. AWAITING AVAILABILITY OF OXIMETRY PER RT.
--- NOTE | 2020-09-09 18:05 | NUR ---
SHIFT SUMMARY PT AAOX4, ABLE TO MAKE NEEDS KNOWN, PLEASANT AND COOPERATIVE TO CARE. PT APPEARS WEAK. MEDICATED FOR PAIN PER EMAR. PT ALSO MEDICATED FOR N&V. PT NOTED FOR TO HAVE SATS OF 84%- 86% ON RA, ALSO NOTED TO HAVE FEVER OF 100.8. NOTIFIED Chrissy ACEVES NOTED. PT PLACE ON 4LPM O2 VIA NC RECOMMENDED BY RT STAFF. PT SAT AT 92-94. PT ALSO CONTINUES TO HAVE MINIMAL ETOH WITHDRAWAL SYMPTOMS, PER ASSESSMENT PT CURRENT CIWA SCORE AT 5. PT ON IV ABX ORDERED, NO ASE NOTED. PT CONTINUES TO ON NPO ORDERED. ON IV D5NS AT 125 ML/HR. PT CURRENTLY RESTING IN A RECLINER AT THIS TIME. CHAIR ALARM IN PLACE FOR SAFETY. CALL LIGHT WITHIN REACH.
[2020-09-10 05:38] LABS: BASOPHILS ABSOLUTE AUTO 0.02 K/mm3 (0.00-0.23); BASOPHILS PERCENT AUTO 0 % (0-2); EOSINOPHILS PERCENT AUTO 0 % (0-6); Hematocrit 33.4 % (33.0-51.0); Hemoglobin 11.1 g/dL (11.5-16.0); IMMATURE GRAN ABSOLUTE AUTO 0.02 K/mm3 (0.00-0.10); IMMATURE GRAN PERCENT AUTO 0 % (0-1); LYMPHOCYTES ABSOLUTE AUTO 0.91 K/mm3 (0.84-5.20); LYMPHOCYTES PERCENT AUTO 17 % (21-46); MONOCYTES ABSOLUTE AUTO 0.62 K/mm3 (0.16-1.47); MONOCYTES PERCENT AUTO 11 % (4-13); Mean Corpuscular HGB 31.1 pg (26.0-34.0); Mean Corpuscular HGB Conc 33.2 g/dL (31.5-36.5); Mean Corpuscular Volume 94 fL (80-100); Mean Platelet Volume 11.5 fL (9.1-12.4); NEUTROPHILS ABSOLUTE AUTO 3.94 K/mm3 (1.96-9.15); NEUTROPHILS PERCENT AUTO 71 % (41-73); Platelet Count 70 K/mm3 (150-400); RDW Coefficient Variation 15.5 % (11.7-14.2); RDW Standard Deviation 53.4 fL (35.1-46.3); Red Blood Cell Count 3.57 M/mm3 (3.80-5.20); White Blood Cell Count 5.51 K/mm3 (4.00-11.30)
[2020-09-10 05:59] LABS: Alanine Aminotransfer (ALT/SGP 24 U/L (12-78); Albumin/Globulin Ratio 0.8 (0.8-1.8); Alk Phos 64 U/L (50-136); Anion Gap 6 mmol/L (6-16); Aspartate Aminotrans (AST/SGOT 92 U/L (12-37); Bilirubin, Total 1.7 mg/dL (0.1-1.0); Blood Urea Nitrogen 6 mg/dL (8-24); Bun/Creatinine Ratio 10.1 (12.0-20.0); CO2, Blood 28 mmol/L (21-32); Calcium, Blood 7.9 mg/dL (8.5-10.1); Chloride, Blood 105 mmol/L (98-108); Globulin, Blood 3.7 g/dL (2.2-4.0); Glomerular Filtration Rate >60 (60-); Glucose, Blood 105 mg/dL (70-99); Magnesium, Blood 1.4 mg/dL (1.6-2.4); Phosphorus, Blood 3.6 mg/dL (2.5-4.9); Potassium, Blood 2.9 mmol/L (3.5-5.5); Sodium, Blood 139 mmol/L (136-145); Total Protein, Blood 6.7 g/dL (6.4-8.2)
--- NOTE | 2020-09-10 06:27 | NUR ---
SHIFT SUMMARY- PT. A&O, COVID POS. ON 4L NC, SATS BETWEEN 92-94%, BIOX IN PLACE. PT. HAD LOW GRADE TEMPS LAST NIGHT, ALSO C/O PAIN. MEDICATED PER EMAR WITH GOOD EFFECT. CIWA SCORE OF 4. PT SLEPT T/O THE NIGHT, NO APPARENT DISTRESS NOTED. NEB TX'S GIVEN PRN. ABLE TO AMBULATE TO BATHROOM W/WALKER AND 1 ASSIST, STATES CONTS TO FEEL WEAK. DENIED ANY OTHER NEEDS DURING THE NIGHT. CALL LIGHT WITHIN REACH AND SIDE RAILS UPX2. WILL CONT TO MONITOR.
--- NOTE | 2020-09-10 09:18 | NUR ---
PATIENT C/O BURNING CP 7/10 THIS MORNING AT REST AND WITH EXERTION. VITALS WERE TAKEN BP 143/101 PULSE 106 O2 SAT 94% ON 4L O2 NC. DR. JESUS NOTIFIED BY PHONE AND ORDERS WERE GIVEN. TROPONIN I STAT, GI COCTAIL AND ASA 325MG STAT. PATIENT STATES AT 0915 THAT THE CP HAS RESOLVED WITH DEEP BREATHING. SHE IS SITTING UP IN THE RECLINER. WILL CONTINUE TO MONITOR. CHAIR ALARM IS ON
--- NOTE | 2020-09-10 13:48 | NUR ---
C/O 6/10 CP.
--- NOTE | 2020-09-10 17:16 | NUR ---
PATIENT IS ALERT AND ORIENTED AND COOPERATIVE WITH CARE. C/O CP, DR. JESUS NOTIFIED. ORDERS GIVEN. TRENDING TROPONINS. CONTINENT/INCONTINENT OF BLADDER. ON 4L O2 WITH O2 SATS 98%. 1PA TO THE BATHROOM. PATIENT CALLS APPROPRIATELY. C/O NEUROPATHY IN HANDS AND FEET. CP TREATED WITH NITRO AND FENTANYL PER EMAR. PATIENT HAS TREMORS. WILL CONTINUE TO MONITOR
[2020-09-11 05:18] LABS: BASOPHILS PERCENT AUTO 0 % (0-2); EOSINOPHILS PERCENT AUTO 0 % (0-6); Hematocrit 31.3 % (33.0-51.0); Hemoglobin 10.3 g/dL (11.5-16.0); IMMATURE GRAN ABSOLUTE AUTO 0.02 K/mm3 (0.00-0.10); IMMATURE GRAN PERCENT AUTO 1 % (0-1); LYMPHOCYTES ABSOLUTE AUTO 0.73 K/mm3 (0.84-5.20); LYMPHOCYTES PERCENT AUTO 20 % (21-46); MONOCYTES ABSOLUTE AUTO 0.46 K/mm3 (0.16-1.47); MONOCYTES PERCENT AUTO 13 % (4-13); Mean Corpuscular HGB 30.9 pg (26.0-34.0); Mean Corpuscular HGB Conc 32.9 g/dL (31.5-36.5); Mean Corpuscular Volume 94 fL (80-100); Mean Platelet Volume 12.6 fL (9.1-12.4); NEUTROPHILS ABSOLUTE AUTO 2.46 K/mm3 (1.96-9.15); NEUTROPHILS PERCENT AUTO 67 % (41-73); Platelet Count 66 K/mm3 (150-400); RDW Coefficient Variation 15.4 % (11.7-14.2); RDW Standard Deviation 53.1 fL (35.1-46.3); Red Blood Cell Count 3.33 M/mm3 (3.80-5.20); White Blood Cell Count 3.67 K/mm3 (4.00-11.30)
--- NOTE | 2020-09-11 05:32 | NUR ---
SHIFT SUMMARY- PT. HAD NO ACUTE EVENTS OVERNIGHT. MEDICATED FOR L ARM PAIN AND BURNING SENSATION IN CHEST 2X, WITH GOOD EFFECT. PT. REMAINS ON 4L OF O2 VIA NC, VSS. CIWA SCORE OF 4. SLEPT T/O THE NIGHT, NO APPARENT DISTRESS NOTED. CALL LIGHT WITHIN REACH AND SIDE RAILS UPX2. WILL CONT TO MONITOR.
[2020-09-11 05:36] LABS: Alanine Aminotransfer (ALT/SGP 24 U/L (12-78); Albumin/Globulin Ratio 0.8 (0.8-1.8); Alk Phos 57 U/L (50-136); Anion Gap 6 mmol/L (6-16); Aspartate Aminotrans (AST/SGOT 63 U/L (12-37); Bilirubin, Total 2.2 mg/dL (0.1-1.0); Blood Urea Nitrogen 6 mg/dL (8-24); Bun/Creatinine Ratio 12.3 (12.0-20.0); CO2, Blood 30 mmol/L (21-32); Calcium, Blood 8.6 mg/dL (8.5-10.1); Chloride, Blood 106 mmol/L (98-108); Creatinine, Blood 0.49 mg/dL (0.40-1.00); Globulin, Blood 3.8 g/dL (2.2-4.0); Glomerular Filtration Rate >60 (60-); Glucose, Blood 119 mg/dL (70-99); Magnesium, Blood 1.8 mg/dL (1.6-2.4); Phosphorus, Blood 2.4 mg/dL (2.5-4.9); Potassium, Blood 2.8 mmol/L (3.5-5.5); Sodium, Blood 142 mmol/L (136-145); Total Protein, Blood 6.8 g/dL (6.4-8.2)
--- NOTE | 2020-09-11 19:39 | NUR ---
a +o to self and location, call light in reach, potassium infusing with no s/sx of infiltration or infection, 2L via nc, no s/sx of with drawal noted during assessment, report shared with noc nurse
--- NOTE | 2020-09-12 02:11 | NUR ---
PATIENT DESTATED TO 87% AND NOTED TO BE SLEEPING WITHOUT OXYGEN ON. PLACED BACK ON 3L O2 NC AND STATING 92% ON CONTINUOUS PULSE OXIMETRY.
--- NOTE | 2020-09-12 03:26 | NUR ---
SHIFT SUMMARY PATIENT HAD NO ACUTE CHANGES OBSERVED. AXOX 4 AND INDEPENDENT IN ROOM. ON 3L O2 NC STATING 92% ON CONTINUOUS PULSE OXIMETRY. PATIENT DESTATED TO 87% WHEN SHE TOOK O2 OFF TO SLEEP. REPORTED LEFT SHOULDER AND RIGHT ANKLE PAIN X 2 AND IV FENTANYL 25 MCG GIVEN PER EMAR. DROPLET PRECAUTIONS WITH COVID-19. DENIES SOB AND N/V. VSS/AFEBRILE. CIWA'S ARE ZERO. PIV REMAINS INTACT. CALL LIGHT IN REACH. BED IN LOWEST POSITION. WILL CONTINUE TO MONITOR UNTIL DAY SHIFT NURSE ASSUMES CARE.
[2020-09-12 05:08] LABS: BASOPHILS PERCENT AUTO 0 % (0-2); EOSINOPHILS PERCENT AUTO 0 % (0-6); Hematocrit 31.5 % (33.0-51.0); Hemoglobin 10.6 g/dL (11.5-16.0); IMMATURE GRAN ABSOLUTE AUTO 0.01 K/mm3 (0.00-0.10); IMMATURE GRAN PERCENT AUTO 0 % (0-1); LYMPHOCYTES ABSOLUTE AUTO 0.72 K/mm3 (0.84-5.20); LYMPHOCYTES PERCENT AUTO 22 % (21-46); MONOCYTES ABSOLUTE AUTO 0.35 K/mm3 (0.16-1.47); MONOCYTES PERCENT AUTO 11 % (4-13); Mean Corpuscular HGB 31.5 pg (26.0-34.0); Mean Corpuscular HGB Conc 33.7 g/dL (31.5-36.5); Mean Corpuscular Volume 94 fL (80-100); NEUTROPHILS ABSOLUTE AUTO 2.15 K/mm3 (1.96-9.15); NEUTROPHILS PERCENT AUTO 67 % (41-73); Platelet Count 85 K/mm3 (150-400); RDW Coefficient Variation 15.2 % (11.7-14.2); RDW Standard Deviation 52.9 fL (35.1-46.3); Red Blood Cell Count 3.36 M/mm3 (3.80-5.20); White Blood Cell Count 3.23 K/mm3 (4.00-11.30)
[2020-09-12 05:15] LABS: Mean Platelet Volume 12.8 fL (9.1-12.4)
[2020-09-12 05:33] LABS: Alanine Aminotransfer (ALT/SGP 21 U/L (12-78); Albumin, Blood 2.9 g/dL (3.4-5.0); Albumin/Globulin Ratio 0.8 (0.8-1.8); Alk Phos 55 U/L (50-136); Anion Gap 5 mmol/L (6-16); Aspartate Aminotrans (AST/SGOT 59 U/L (12-37); Bilirubin, Total 2.2 mg/dL (0.1-1.0); Blood Urea Nitrogen 13 mg/dL (8-24); Bun/Creatinine Ratio 25.6 (12.0-20.0); CO2, Blood 31 mmol/L (21-32); Calcium, Blood 8.7 mg/dL (8.5-10.1); Chloride, Blood 105 mmol/L (98-108); Creatinine, Blood 0.51 mg/dL (0.40-1.00); Globulin, Blood 3.5 g/dL (2.2-4.0); Glomerular Filtration Rate >60 (60-); Glucose, Blood 108 mg/dL (70-99); Magnesium, Blood 1.9 mg/dL (1.6-2.4); Phosphorus, Blood 3.8 mg/dL (2.5-4.9); Potassium, Blood 3.5 mmol/L (3.5-5.5); Sodium, Blood 141 mmol/L (136-145); Total Protein, Blood 6.4 g/dL (6.4-8.2)
--- NOTE | 2020-09-12 19:10 | NUR ---
call light in reach, saline locked, arm pain treated with pain medication and stretching, 1 L via nc keeps o2 level above 90 but when no 0xygen pt drops below 90 at times and says she is is sob, will continue to monitor and treat until share bsr with noc nurse
--- NOTE | 2020-09-13 03:21 | NUR ---
SHIFT SUMMARY PATIENT HAD NO ACUTE CHANGES. AXOX 4 AND INDEPENDENT IN ROOM. REPORTED LEFT SHOULDER PAIN AND ADVIL 600 MG GIVEN PER EMAR. ON 3L O2 NC STATING 90%-93% ON CONTINUOUS PULSE OXIMETRY. DESTATS DOWN TO 87% WHEN SHE TAKES NC OFF AND ON ROOM AIR. VSS/AFEBRILE. PIV REMAINS INTACT. COOPERATIVE WITH CARE. SLEPT MOST OF THE NIGHT. CALL LIGHT IN REACH. BED IN LOWEST POSITION. WILL CONTINUE TO MONITOR UNTIL DAY SHIFT NURSE ASSUMES CARE.
[2020-09-13 05:16] LABS: BASOPHILS PERCENT AUTO 0 % (0-2); EOSINOPHILS PERCENT AUTO 0 % (0-6); Hemoglobin 10.8 g/dL (11.5-16.0); IMMATURE GRAN PERCENT AUTO 0 % (0-1); LYMPHOCYTES ABSOLUTE AUTO 0.86 K/mm3 (0.84-5.20); LYMPHOCYTES PERCENT AUTO 25 % (21-46); MONOCYTES ABSOLUTE AUTO 0.34 K/mm3 (0.16-1.47); MONOCYTES PERCENT AUTO 10 % (4-13); Mean Corpuscular HGB 30.8 pg (26.0-34.0); Mean Corpuscular HGB Conc 32.7 g/dL (31.5-36.5); Mean Corpuscular Volume 94 fL (80-100); Mean Platelet Volume 12.2 fL (9.1-12.4); NEUTROPHILS ABSOLUTE AUTO 2.18 K/mm3 (1.96-9.15); NEUTROPHILS PERCENT AUTO 65 % (41-73); Platelet Count 116 K/mm3 (150-400); RDW Coefficient Variation 15.1 % (11.7-14.2); Red Blood Cell Count 3.51 M/mm3 (3.80-5.20); White Blood Cell Count 3.38 K/mm3 (4.00-11.30)
[2020-09-13 05:51] LABS: Albumin, Blood 2.9 g/dL (3.4-5.0); Albumin/Globulin Ratio 0.9 (0.8-1.8); Bilirubin, Direct 0.9 mg/dL (0.0-0.3); Bilirubin, Indirect 0.8 mg/dL (0.1-0.7); Bilirubin, Total 1.7 mg/dL (0.1-1.0); Globulin, Blood 3.3 g/dL (2.2-4.0); Total Protein, Blood 6.2 g/dL (6.4-8.2)
--- NOTE | 2020-09-13 18:48 | NUR ---
a+o, covid+, call light in reach, medicated as prescribed, 1L via nc but she took it off for most of the day and remained above 90. during bsr pt dropped to 87 but recovered when reminded to breath, saline locked
--- NOTE | 2020-09-14 00:08 | NUR ---
BREAKTHROUGH NEUROPATHY PAIN. PATIENT TO DC 09/14. HOSPITALIST JOSÉ REPORTS TO GIVE TYLENOL 650 MG AND ADDED MELATONIN 5 MG X ONE.
--- NOTE | 2020-09-14 03:38 | NUR ---
SHIFT SUMMARY PATIENT HAD NO ACUTE CHANGES OBSERVED. AXOX 4 AND INDEPENDENT IN ROOM. DROPLET PRECAUTIONS COVID-19+. ON ROOM AIR DURING DAY AND 2-3L O2 NC NOC STATING 92-95% ON CONTINUOUS PULSE OXIMETRY. PIV REMAINS INTACT. DENIES SOB AND N/V. REPORTED BREAKTHROUGH NEUROPATHY PAIN AND HOSPITALIST JOSÉ REPORTS TO GIVE TYLENOL 650 MG WITH DC IN AM AND ORDERED MELATONIN 5 MG FOR INSOMNIA. LOW GRADE TEMP 99.3 AT SHIFT CHANGE AND ROOM TEMP TURNED DOWN. VSS. CALL LIGHT IN REACH. BED IN LOWEST POSITION. WILL CONTINUE TO MONITOR UNTIL DAY SHIFT NURSE ASSUMES CARE.
[2020-09-14 05:29] LABS: BASOPHILS PERCENT AUTO 0 % (0-2); EOSINOPHILS PERCENT AUTO 0 % (0-6); Hematocrit 35.1 % (33.0-51.0); Hemoglobin 11.5 g/dL (11.5-16.0); IMMATURE GRAN ABSOLUTE AUTO 0.01 K/mm3 (0.00-0.10); IMMATURE GRAN PERCENT AUTO 0 % (0-1); LYMPHOCYTES ABSOLUTE AUTO 0.71 K/mm3 (0.84-5.20); LYMPHOCYTES PERCENT AUTO 19 % (21-46); MONOCYTES ABSOLUTE AUTO 0.34 K/mm3 (0.16-1.47); MONOCYTES PERCENT AUTO 9 % (4-13); Mean Corpuscular HGB 30.3 pg (26.0-34.0); Mean Corpuscular HGB Conc 32.8 g/dL (31.5-36.5); Mean Corpuscular Volume 92 fL (80-100); Mean Platelet Volume 12.1 fL (9.1-12.4); NEUTROPHILS ABSOLUTE AUTO 2.67 K/mm3 (1.96-9.15); NEUTROPHILS PERCENT AUTO 72 % (41-73); Platelet Count 133 K/mm3 (150-400); RDW Coefficient Variation 15.2 % (11.7-14.2); RDW Standard Deviation 51.5 fL (35.1-46.3); White Blood Cell Count 3.73 K/mm3 (4.00-11.30)
--- NOTE | 2020-09-14 05:56 | NUR ---
PATIENT CONTINUES TO HAVE NEUROPATHY PAIN IN LEGS. ADVIL 600 MG GIVEN PER EMAR. PATIENT BACK TO BED. WCTM.
[2020-09-14 05:58] LABS: Alanine Aminotransfer (ALT/SGP 26 U/L (12-78); Albumin, Blood 2.9 g/dL (3.4-5.0); Albumin/Globulin Ratio 0.8 (0.8-1.8); Alk Phos 60 U/L (50-136); Anion Gap 5 mmol/L (6-16); Aspartate Aminotrans (AST/SGOT 62 U/L (12-37); Bilirubin, Total 1.5 mg/dL (0.1-1.0); Blood Urea Nitrogen 17 mg/dL (8-24); Bun/Creatinine Ratio 33.5 (12.0-20.0); CO2, Blood 30 mmol/L (21-32); Calcium, Blood 9.1 mg/dL (8.5-10.1); Chloride, Blood 103 mmol/L (98-108); Creatinine, Blood 0.51 mg/dL (0.40-1.00); Globulin, Blood 3.6 g/dL (2.2-4.0); Glomerular Filtration Rate >60 (60-); Glucose, Blood 113 mg/dL (70-99); Magnesium, Blood 1.9 mg/dL (1.6-2.4); Phosphorus, Blood 4.6 mg/dL (2.5-4.9); Potassium, Blood 4.4 mmol/L (3.5-5.5); Sodium, Blood 138 mmol/L (136-145); Total Protein, Blood 6.5 g/dL (6.4-8.2)
[2020-09-14] MEDS ORDERED: ACET325 PO (10:17)
[2020-09-14] MEDS ORDERED: DEXAMETHASONE1 M1 PO (10:21)
[2020-09-14] MEDS ORDERED: IBUP600 PO (10:23)
[2020-09-14] MEDS ORDERED: DIPATR PO (10:23)
[2020-09-14] MEDS ORDERED: ONDA4ODT MM (10:24)
[2020-09-14] MEDS ORDERED: ALBU90OI INH (10:24)
[2020-09-14] MEDS ORDERED: CALYPXO HP CRE113 GM TOP (10:24)
[2020-09-14] MEDS ORDERED: POTCHL20ER PO (10:25)
[2020-09-14] MEDS ORDERED: VISBIOME 112.51 EACH PO (10:25)
[2020-09-14] MEDS ORDERED: PANT20 PO (10:25)
[2020-09-14] MEDS ORDERED: XARELTO10 M5 PO (10:25)
[2020-09-14] MEDS ORDERED: VITAMIN D31000 UNI1 PO (10:26)
--- NOTE | 2020-09-14 17:52 | NUR ---
DISCHARGE DISCHARGE MEDICATIONS AND INSTRUCTIONS EXPLAINED TO PATIENT. PATIENT STATED UNDERSTANDING. PCP FOLLOW UP SCHEDULED. HOME 02 EVAL COMPLETED, RIKA BROUGHT PORTABLE 02 TO BEDSIDE AND INSTRUCTED PATIENT IN USE. COVID SELF ISOLATION INSTRUCTIONS GIVEN. IV REMVOED WITHOUT ISSUE. BELONGINGS WITH PATIENT. PATIENT TRANSFERED TO PRIVATE VEHICLE VIA WHEELCHAIR.
== END 2020-09-14 17:28 | disposition home or self-care (01) | DRG 177 ==
LOC: ER 12:11 → ERHOLD 12:12 → MEDS 19:48 → ENPENDDIS 09-14 10:26 → MEDS 09-14 17:28
PROVIDERS: Family Medicine; Internal Medicine; Student in an Organized Health Care Education/Training Program; ADMIT Internal Medicine
PROC: 8E0ZXY6 Isolation (ICD-10-PCS; principal; 2020-09-09)
PROC: XW033E5 Introduction of Remdesivir Anti-infective into Peripheral Vein, Percutaneous Approach, New Technology Group 5 (ICD-10-PCS; 2020-09-09)
DX: U07.1 COVID-19 (principal); J96.01 Acute respiratory failure with hypoxia; J12.82 Pneumonia due to coronavirus disease 2019; K80.10 Calculus of gallbladder with chronic cholecystitis without obstruction; E66.9 Obesity, unspecified; Z68.34 Body mass index [BMI] 34.0-34.9, adult; N39.0 Urinary tract infection, site not specified; D61.818 Other pancytopenia; E87.1 Hypo-osmolality and hyponatremia; R19.7 Diarrhea, unspecified; D69.6 Thrombocytopenia, unspecified; E87.6 Hypokalemia; D64.9 Anemia, unspecified; F10.20 Alcohol dependence, uncomplicated; G62.9 Polyneuropathy, unspecified; Z79.899 Other long term (current) drug therapy; Z98.51 Tubal ligation status
CPT/HCPCS: 36415; 36600; 71045; 74181; 76705; 80053; 80076; 81001; 81025; 82803; 83605; 83690; 83735; 84100; 84484; 85025; 85027; 87086; 87493; 93005; 93010; 94640; 94761; 94762; 96365; 96366; 96367; 96375; 96376; 99285-25; A9270; C9113; G0378; J0696; J1790; J2270; J2405; J2550; J2765; J3010; J3411; J3475; J3480; J7030; J7042; J7060; U0004

== ENCOUNTER 2022-01-18 07:42 | Emergency (ER) | payer OTHER ==
[~2022-01-18] VITALS: Ht 170.2 cm; Wt 95.2 kg
[~2022-01-18 07:42] MED LIST changes: +ACET325 PO; +ALBU90OI INH; +CALYPXO HP CRE113 GM TOP; +CLON.1 PO; +Cephalexin500 M1 PO; +DEXAMETHASONE1 M1 PO; +DIPATR PO; +GABAPENTIN600 MG PO; +HYDPAM50 PO; +METO25 PO; +Naltrexone HCl50 MG PO; +PANT20 PO; +POTCHL20ER PO; +TRAZ50 PO; +VISBIOME 112.51 EACH PO; +VITAMIN D31000 UNI1 PO; +XARELTO10 M5 PO
[2022-01-18 08:51] LABS: BASOPHILS ABSOLUTE AUTO 0.04 K/mm3 (0.00-0.23); BASOPHILS PERCENT AUTO 0 % (0-2); EOSINOPHILS ABSOLUTE AUTO 0.07 K/mm3 (0.00-0.68); EOSINOPHILS PERCENT AUTO 1 % (0-6); Hemoglobin 15.8 g/dL (11.5-16.0); IMMATURE GRAN ABSOLUTE AUTO 0.03 K/mm3 (0.00-0.10); IMMATURE GRAN PERCENT AUTO 0 % (0-1); LYMPHOCYTES ABSOLUTE AUTO 1.76 K/mm3 (0.84-5.20); LYMPHOCYTES PERCENT AUTO 19 % (21-46); MONOCYTES ABSOLUTE AUTO 0.58 K/mm3 (0.16-1.47); MONOCYTES PERCENT AUTO 6 % (4-13); Mean Corpuscular HGB 34.6 pg (26.0-34.0); Mean Corpuscular HGB Conc 34.3 g/dL (31.5-36.5); Mean Corpuscular Volume 101 fL (80-100); NEUTROPHILS ABSOLUTE AUTO 6.76 K/mm3 (1.96-9.15); NEUTROPHILS PERCENT AUTO 73 % (41-73); Platelet Count 135 K/mm3 (150-400); RDW Coefficient Variation 15.3 % (11.7-14.2); RDW Standard Deviation 57.1 fL (35.1-46.3); Red Blood Cell Count 4.57 M/mm3 (3.80-5.20); White Blood Cell Count 9.24 K/mm3 (4.00-11.30)
[2022-01-18 09:08] LABS: Influenza A, PCR NEGATIVE (NEGATIVE); Influenza B, PCR NEGATIVE (NEGATIVE); Resp Syncytial Virus, PCR NEGATIVE (NEGATIVE); SARS-Cov-2 (COVID-19) PCR, MMC NEGATIVE (NEGATIVE)
[2022-01-18 09:08] LABS: Albumin, Blood 4.1 g/dL (3.4-5.0); Albumin/Globulin Ratio 1.1 (0.8-1.8); Bun/Creatinine Ratio 9.4 (12.0-20.0); Calcium, Blood 9.1 mg/dL (8.5-10.1); Creatinine, Blood 0.53 mg/dL (0.40-1.00); Globulin, Blood 3.9 g/dL (2.2-4.0); Potassium, Blood 3.1 mmol/L (3.5-5.5)
[2022-01-18] MEDS ORDERED: SUBOXONE 8 MG-1 EACH SL (10:44)
[2022-01-18] MEDS ORDERED: HYDR1TAB94 PO (11:48)
[2022-01-18] MEDS ORDERED: CHLO25 PO (11:48)
[2022-01-18] MEDS ORDERED: ONDA4ODT MM (11:48)
== END 2022-01-18 12:03 | disposition home or self-care (01) ==
LOC: ER 07:42
PROVIDERS: Physician Assistant
DX: K85.20 Alcohol induced acute pancreatitis without necrosis or infection (principal); F10.90 Alcohol use, unspecified, uncomplicated; Z79.899 Other long term (current) drug therapy; Z79.02 Long term (current) use of antithrombotics/antiplatelets; Z20.822 Contact with and (suspected) exposure to COVID-19
CPT/HCPCS: 0241U; 36415; 76705; 80053; 83690; 85025; A9270; J1885; J2765; J7030

== ENCOUNTER 2022-04-12 22:13 | Inpatient (IN) | payer OTHER ==
[~2022-04-12] VITALS: Ht 170.2 cm; Wt 142.9 kg
[~2022-04-12 22:13] MED LIST changes: +CHLO25 PO; +HYDR1TAB94 PO; +SUBOXONE 8 MG-1 EACH SL
[2022-04-12 22:55] LABS: BASOPHILS ABSOLUTE AUTO 0.05 K/mm3 (0.00-0.23); BASOPHILS PERCENT AUTO 1 % (0-2); EOSINOPHILS ABSOLUTE AUTO 0.01 K/mm3 (0.00-0.68); EOSINOPHILS PERCENT AUTO 0 % (0-6); Hematocrit 33.9 % (33.0-51.0); Hemoglobin 12.7 g/dL (11.5-16.0); IMMATURE GRAN ABSOLUTE AUTO 0.07 K/mm3 (0.00-0.10); IMMATURE GRAN PERCENT AUTO 1 % (0-1); LYMPHOCYTES ABSOLUTE AUTO 2.43 K/mm3 (0.84-5.20); LYMPHOCYTES PERCENT AUTO 22 % (21-46); MONOCYTES ABSOLUTE AUTO 0.95 K/mm3 (0.16-1.47); MONOCYTES PERCENT AUTO 9 % (4-13); Mean Corpuscular HGB 36.5 pg (26.0-34.0); Mean Corpuscular HGB Conc 37.5 g/dL (31.5-36.5); Mean Corpuscular Volume 97 fL (80-100); Mean Platelet Volume 11.9 fL (9.1-12.4); NEUTROPHILS ABSOLUTE AUTO 7.45 K/mm3 (1.96-9.15); NEUTROPHILS PERCENT AUTO 68 % (41-73); Platelet Count 93 K/mm3 (150-400); RDW Coefficient Variation 18.7 % (11.7-14.2); RDW Standard Deviation 63.7 fL (35.1-46.3); Red Blood Cell Count 3.48 M/mm3 (3.80-5.20); White Blood Cell Count 10.96 K/mm3 (4.00-11.30)
[2022-04-12 23:03] LABS: Alanine Aminotransfer (ALT/SGP 42 U/L (12-78); Albumin/Globulin Ratio 0.7 (0.8-1.8); Alk Phos 192 U/L (50-136); Anion Gap 18 mmol/L (6-16); Aspartate Aminotrans (AST/SGOT 387 U/L (12-37); Bilirubin, Total 13.5 mg/dL (0.1-1.0); Blood Urea Nitrogen 9 mg/dL (8-24); Bun/Creatinine Ratio 17.4 (12.0-20.0); CO2, Blood 29 mmol/L (21-32); Calcium, Blood 8.9 mg/dL (8.5-10.1); Chloride, Blood 82 mmol/L (98-108); Creatinine, Blood 0.52 mg/dL (0.40-1.00); Ethanol (Alcohol), Blood, Med <3 mg/dL; Globulin, Blood 4.1 g/dL (2.2-4.0); Glomerular Filtration Rate 123 (60-); Glucose, Blood 86 mg/dL (70-99); Potassium, Blood 2.9 mmol/L (3.5-5.5); Sodium, Blood 129 mmol/L (136-145); Total Protein, Blood 7.1 g/dL (6.4-8.2)
[2022-04-13 00:13] LABS: International Normalized Ratio 1.86; Prothrombin Time Results 18.8 Sec (9.7-11.5)
[2022-04-13 01:07] LABS: Source, Urine Clean Catch
[2022-04-13 01:17] LABS: Appearance, Urine Cloudy (Clear); Blood, Urine 2+ (Neg); Color, Urine Brown (P-Yellow); Glucose Qualitative, Urine Neg (Neg); Ketones, Urine 2+ (Neg); Leukocyte Esterase, Urine 1+ (Neg); Nitrite, Urine Neg (Neg); Protein, Urine 3+ (Neg); Urobilinogen, Urine 3+ (Normal)
[2022-04-13 01:36] LABS: Bilirubin, Urine 3+ (Neg)
[2022-04-13 01:40] LABS: Amorphous Light (0-Heavy); Bacteria Many /hpf; Mucus Mod (0-Heavy); Red Blood Cells, Urine 0-2 /hpf (0-2); Squamous Epithelial Cells Many /hpf (Few)
[2022-04-13 03:49] LABS: BASOPHILS ABSOLUTE AUTO 0.03 K/mm3 (0.00-0.23); BASOPHILS PERCENT AUTO 0 % (0-2); EOSINOPHILS ABSOLUTE AUTO 0.23 K/mm3 (0.00-0.68); EOSINOPHILS PERCENT AUTO 2 % (0-6); Hematocrit 32.8 % (33.0-51.0); Hemoglobin 12.1 g/dL (11.5-16.0); IMMATURE GRAN ABSOLUTE AUTO 0.12 K/mm3 (0.00-0.10); IMMATURE GRAN PERCENT AUTO 1 % (0-1); LYMPHOCYTES ABSOLUTE AUTO 2.17 K/mm3 (0.84-5.20); LYMPHOCYTES PERCENT AUTO 18 % (21-46); MONOCYTES ABSOLUTE AUTO 1.24 K/mm3 (0.16-1.47); MONOCYTES PERCENT AUTO 10 % (4-13); Mean Corpuscular HGB Conc 36.9 g/dL (31.5-36.5); Mean Corpuscular Volume 98 fL (80-100); NEUTROPHILS ABSOLUTE AUTO 8.16 K/mm3 (1.96-9.15); NEUTROPHILS PERCENT AUTO 68 % (41-73); NRBC ABSOLUTE 0.02 K/mm3 (0.00-0.02); NRBC Auto 0.2 /100 WBC (0.0-0.2); Platelet Count 98 K/mm3 (150-400); RDW Coefficient Variation 18.7 % (11.7-14.2); RDW Standard Deviation 63.5 fL (35.1-46.3); Red Blood Cell Count 3.36 M/mm3 (3.80-5.20); White Blood Cell Count 11.95 K/mm3 (4.00-11.30)
[2022-04-13 04:07] LABS: Albumin, Blood 2.9 g/dL (3.4-5.0); Albumin/Globulin Ratio 0.8 (0.8-1.8); Bilirubin, Total 12.6 mg/dL (0.1-1.0); Bun/Creatinine Ratio 12.3 (12.0-20.0); Calcium, Blood 8.9 mg/dL (8.5-10.1); Creatinine, Blood 0.81 mg/dL (0.40-1.00); Globulin, Blood 3.8 g/dL (2.2-4.0); Magnesium, Blood 1.5 mg/dL (1.6-2.4); Total Protein, Blood 6.7 g/dL (6.4-8.2)
--- NOTE | 2022-04-13 06:04 | NUR ---
PT AOX2. CONFUSED AND HALLUCINATING, REQUIRING PRECEDEX AND RESTRAINTS DUE TO REMOVING EQUIPMENT AND FREQUENT ATTEMPTS TO GET OUT OF BED. PT UNABLE TO BE REORIENTED. SINUS TACH WITH STABLE BP. ROOM AIR. PASSED BEDSIDE SWALLOW EVAL. INCONTINENT. CIWA SCORE OF 18
--- NOTE | 2022-04-13 08:00 | NUR ---
Received report from Migue YODER. Patient is awake intermitently. She can answer simple questions other kumar she has visual and auditory hallucinations, very tremulous. She passed rn swallow eval and was able to drink water and take PO pills while alert and sitting up. She has 18ga PowerGlide in JENNY and has LR at 100ml/hr, Precedex at 0.2 mcg/kg/hr, and 2GM Mag. She is on RA and sats >90%. MAEW but very weak. Patient received 50mg librium.
--- NOTE | 2022-04-13 09:35 | NUR ---
No significant changes with patient. She has been resting since last note. She talks in her sleep and moves around in bed. See CIWA. She remains on RA and sats >90%. Doing close observation and trialing her for short periods from restraints. VSS
--- NOTE | 2022-04-13 11:30 | NUR ---
Patient had bath and linen change with repositioning. Will be removing restraints. Daughter called and gave her update. She remains on RA and sats >90%. She remains hypotensive in the 90's and MAP >65. Precedex remains 0.2 mcg/kg/hr, LR at 100ml/hr. She continues to sleep.
--- NOTE | 2022-04-13 14:16 | NUR ---
No changes with patient. She remains on Precedex at 0.2 mcg/kg/hr and LR at 100 ml/hr. She continues on RA and sats >90%. MAEW but weak. Moves left and right in bed. Patient sleeping
--- NOTE | 2022-04-13 16:14 | NUR ---
Patient is very hard to arouse and moans alot, moves distal extremities. She is not fully awakening. Precedex has been off for 2 hours, right after last note and LR continues at 100 ml/hr. She remains on RA and sats 97%.
--- NOTE | 2022-04-13 18:45 | NUR ---
Patient moans and groans with painful stimulation and yells out but does not open eye or have any verbal response. Precedex has been off since 1340 and LR continues at 100 ml/hr. Sclera are yellow and skin tinged yellow. VSS. She MARTÍNEZ with painful stimuli. She has attends in place. She remains on RA and sat 97%.
--- NOTE | 2022-04-13 20:00 | NUR ---
ASSUMED CARE PT IS OBTUNDED AND ONLY MOANS/CRIES OUT WHEN ATTEMPTING TO AROUSE PT. SPO2 >92% ON RA; RR IN THE 30'S. HR IN THE 120-130'S; SBP IN THE 90'S. NO TREMORS, DIAPHORESIS NOTED WHILE ASSESSING PT.
--- NOTE | 2022-04-13 21:33 | NUR ---
UPDATE CIWA OF 5, BUT DIFFICULT TO GET AN ACCURATE CIWA PT IS CURRENTLY UNRESPONSIVE. HR IN THE 130'S W/ RR IN THE 30'S.
[2022-04-13 22:35] LABS: pH Blood Arterial 7.31 (7.35-7.45)
[2022-04-13 22:36] LABS: PCO2 Arterial 24.8 mmHg (35-45); PO2 Arterial 59.3 mmHg (80-100)
[2022-04-13 23:14] LABS: Bun/Creatinine Ratio 7.5 (12.0-20.0); Creatinine, Blood 2.14 mg/dL (0.40-1.00); Potassium, Blood 4.9 mmol/L (3.5-5.5)
[2022-04-13 23:56] LABS: Source, Urine Foley catheter
[2022-04-14 00:34] LABS: Appearance, Urine Hazy (Clear); Blood, Urine 4+ (Neg); Color, Urine Brown (P-Yellow); Glucose Qualitative, Urine Neg (Neg); Ketones, Urine 1+ (Neg); Leukocyte Esterase, Urine 1+ (Neg); Nitrite, Urine Neg (Neg); Protein, Urine 3+ (Neg); Specific Gravity, Urine 1.025 (1.003-1.022); Urobilinogen, Urine 3+ (Normal)
[2022-04-14 00:43] LABS: Bilirubin, Urine 3+ (Neg)
[2022-04-14 00:46] LABS: Bacteria Many /hpf; Hyaline Casts 0-2 /lpf (0-2); Red Blood Cells, Urine 0-2 /hpf (0-2); Squamous Epithelial Cells Many /hpf (Few)
[2022-04-14 02:18] LABS: PO2 Arterial 63.9 mmHg (80-100); pH Blood Arterial 7.37 (7.35-7.45)
--- NOTE | 2022-04-14 02:55 | NUR ---
UPDATE AROUND 2229 THIS RN NOTICED THE PT STARTED TO DESATURATE INTO THE 80'S. WENT INTO THE ROOM AND OBSERVED GUPPY BREATHING AND INCREASING HR. BUSINESS SUPPORT WAS NOTIFIED AND MELANIE WAS CALLED AND DECISION TO INTUBATE WAS MADE. PROCEDURE 2255: 10MG OF ETOMIDATE GIVEN 2255: 80MG OF ROCURONIUM GIVEN 7: PT INTUBATED 1,500 LITERS OF LR BOLUSED THROUGHOUT PROCEDURE. TAKEN DOWN TO IMAGING FOR HEAD CT. RT PULLED WHAT APPEARED TO BE GASTRIC FLUID FROM PT'S LUNGS. PT NOW HAS SODIUM BICARBINATE RUNNING AT 125ML/HR; LEVOPHED @ 12MCG/KG/MIN. CURRENTLY OFF SEDATION AND UNRESPONSIVE.
--- NOTE | 2022-04-14 03:27 | NUR ---
UPDATE PT STARTED DESATURATING AND BECAME TACHYCARDIC WHILE THIS RN WAS COMING BACK FROM CT WITH ANOTHER PT PER REPORT. BY THE TIME THIS RN ARRIVED TO THE UNIT PT WAS GETTING PREPPED TO BE INTUBATED. PT HR MOVED INTO AFIB W/ RVR BEFORE INTUBATION AND CURRENTLY HAS AMIODARONE GTT RUNNING. 5MCG/KG/MIN OF LEVOPHED, 0.7 OF PRECEDEX, AND 50MCG/KG/MIN OF PROPOFOL CURRENTLY BEING INFUSED. RT HAVING DIFFICULTY W/ PT'S TIDAL VOLUMES BEING UNDER 200. DR PARK CONSULTED BY RT. PROCEDURE 0031: 10MG OF ETOMIDATE GIVEN 0032: 80MG OF ROCURONIUM GIVEN 0034: ETT IN W/ 7.5 ETT @ 23CM AT GUMS 0038: OG IN 0033: NORMAL SALINE BOLUS GIVEN 0036: LEVOPHED STARTED @ 5MCG 0100: CENTRAL LINE IN
[2022-04-14 04:27] LABS: BASOPHILS ABSOLUTE AUTO 0.03 K/mm3 (0.00-0.23); BASOPHILS PERCENT AUTO 0 % (0-2); EOSINOPHILS ABSOLUTE AUTO 0.01 K/mm3 (0.00-0.68); EOSINOPHILS PERCENT AUTO 0 % (0-6); Hematocrit 30.3 % (33.0-51.0); Hemoglobin 10.7 g/dL (11.5-16.0); IMMATURE GRAN ABSOLUTE AUTO 0.24 K/mm3 (0.00-0.10); IMMATURE GRAN PERCENT AUTO 1 % (0-1); LYMPHOCYTES ABSOLUTE AUTO 2.64 K/mm3 (0.84-5.20); LYMPHOCYTES PERCENT AUTO 12 % (21-46); MONOCYTES ABSOLUTE AUTO 2.02 K/mm3 (0.16-1.47); MONOCYTES PERCENT AUTO 10 % (4-13); Mean Corpuscular HGB 36.4 pg (26.0-34.0); Mean Corpuscular HGB Conc 35.3 g/dL (31.5-36.5); Mean Platelet Volume 11.7 fL (9.1-12.4); NEUTROPHILS ABSOLUTE AUTO 16.36 K/mm3 (1.96-9.15); NEUTROPHILS PERCENT AUTO 77 % (41-73); NRBC ABSOLUTE 0.07 K/mm3 (0.00-0.02); NRBC Auto 0.3 /100 WBC (0.0-0.2); Platelet Count 115 K/mm3 (150-400); RDW Coefficient Variation 21.4 % (11.7-14.2); RDW Standard Deviation 76.5 fL (35.1-46.3); Red Blood Cell Count 2.94 M/mm3 (3.80-5.20)
[2022-04-14 04:34] LABS: Mean Corpuscular Volume 103 fL (80-100)
[2022-04-14 04:59] LABS: Bun/Creatinine Ratio 6.9 (12.0-20.0); Calcium, Blood 8.7 mg/dL (8.5-10.1); Creatinine, Blood 2.45 mg/dL (0.40-1.00); Potassium, Blood 4.4 mmol/L (3.5-5.5)
--- NOTE | 2022-04-14 07:21 | NUR ---
SHIFT SUMMARY PT IS CURRENTLY INTUBATED AND SEDATED W/ VENT SETTINGS @ PC RATE: 20, IP/PEEP 02/08, FIO2 100%. IN ADDITION TO EVENTS IN PREVIOUS PT NOTE UPDATE, LABS CAME BACK W/ GLUCOSE AT 39. DR AN CALLED W/ ORDERS TO GIVE 2 AMPS OF D50 AND START IV D10. SUGARS AFTER D10 INITIATION WAS 240, AND 177 AN HOUR LATER. BLOOD PRESSURES HAVE BEEN SOFT AND REQUIRING TITRATION OF LEVOPHED UP TO 22MCG/KG/MIN AND VASOPRESSIN 0.04 INITIATED. OG TUBE PLACED TO LOW INTERMITTENT SUCTION W/ MINIMAL DARK GASTRIC FLUIDS BEING PULLED. RT SUCTIONED LUNGS AND SAW CLEAR, ORANGE FLUID. ADAMS IS PATENT AND DRAINING TO GRAVITY W/ DARK MINIMAL URINE. RT SPOKE W/ DR PARK ABOUT DIFFICULTY MANAGING PT'S VENTILATION. ATTEMPTED TO CALL PT'S FATHER LISTED ON PHASE SHEET, UNABLE TO CONTACT. HR IN THE 110-130'S, SBP IN THE 100-110S.
[2022-04-14 09:20] LABS: Source, Urine Clean Catch
[2022-04-14 09:27] LABS: Blood, Urine 5+ (Neg); Glucose Qualitative, Urine Neg (Neg); Ketones, Urine 2+ (Neg); Leukocyte Esterase, Urine Neg (Neg); Nitrite, Urine Neg (Neg); Protein, Urine 3+ (Neg); Specific Gravity, Urine 1.025 (1.003-1.022); Urobilinogen, Urine 2+ (Normal); pH, Urine 6.5 (5.0-8.0)
[2022-04-14 09:28] LABS: Appearance, Urine Hazy (Clear); Bilirubin, Urine 3+ (Neg); Color, Urine Amber (P-Yellow)
[2022-04-14 09:44] LABS: International Normalized Ratio 2.6; Prothrombin Time Results 25.6 Sec (9.7-11.5)
[2022-04-14 09:47] LABS: Amorphous Light (0-Heavy); Bacteria Few /hpf; Granular Casts 0-2 /lpf (0); Hyaline Casts 0-2 /lpf (0-2); Squamous Epithelial Cells Mod /hpf (Few)
[2022-04-14 10:00] LABS: U Amphetamine Screen Not Detected; U Barbituate Screen DETECTED; U Benzodiazapine Screen DETECTED; U Buprenorphine Screen DETECTED; U Cannabinoids Screen Not Detected; U Cocaine Screen Not Detected; U Methadone Screen Not Detected; U Methamphetamine Screen Not Detected; U Opiates Screen Not Detected; U Oxycodone Screen Not Detected; U Phencyclidine Screen Not Detected; U Propoxyphene Screen Not Detected
[2022-04-14 12:41] LABS: PCO2 Arterial 31.2 mmHg (35-45); PO2 Arterial 54.2 mmHg (80-100); pH Blood Arterial 7.36 (7.35-7.45)
[2022-04-14 13:40] LABS: International Normalized Ratio 2.93
[2022-04-14 13:54] LABS: Magnesium, Blood 2.1 mg/dL (1.6-2.4)
--- NOTE | 2022-04-14 14:00 | NUR ---
Pt successfully proned per Dr. Zhao after last ABG; placed on new ICU bed, which had been zeroed prior to moving her onto it.
[2022-04-14 14:18] LABS: Albumin, Blood 2.4 g/dL (3.4-5.0); Albumin/Globulin Ratio 0.8 (0.8-1.8); Bilirubin, Total 15.5 mg/dL (0.1-1.0); Bun/Creatinine Ratio 6.2 (12.0-20.0); Creatinine, Blood 3.05 mg/dL (0.40-1.00); Globulin, Blood 3.1 g/dL (2.2-4.0); Phosphorus, Blood 4.3 mg/dL (2.5-4.9); Potassium, Blood 3.8 mmol/L (3.5-5.5); Total Protein, Blood 5.5 g/dL (6.4-8.2)
[2022-04-14 14:54] LABS: Prothrombin Time Results 28.7 Sec (9.7-11.5)
--- NOTE | 2022-04-14 17:39 | NUR ---
Pt's family at bedside. Both of pt's parents at bedside. Pt remains on 100% Fi02, intubated, Peep of 20. Pt is proned. Family only found out pt was here this am after 2 days of no contact. The pt had declined to call her family, and the listed phone numbers were incorrect. Pt was intubated last night, and the bedside RN answered her phone this am. It was pt's brother. Brother contacted parents. Family is tearful, they understand the severity of the situation. Took pt's friend's number to give updates to friend group, ok with parents. Palliative care will remain available.
--- NOTE | 2022-04-14 18:01 | NUR ---
Pepe [phone] Ok to give updates to Pepe, per pt's parents.
--- NOTE | 2022-04-14 19:19 | NUR ---
Pt remained intubated w/ 8.0 ETT, vent settings 16/450/20/100% in a prone position. Plan is to place pt back in supine position around 0500 tomorrow 04/15/22. Vital HP TF started at 10 ml/hr w/ a goal of 25 ml/hr w/ 30 ml water flush q4hr. Rectal tube and navarrete cath in place, only 50 ml urine output for day shift. Levophed gtt 15 mcg/min, Vaso gtt 0.04, Propofol gtt 25, D10 @ 75 ml/hr, LR @ 125 ml/hr. Central line remain in R IJ and Powerglide in R upper arm. RN was able to speka to pt brother this morning and received accurate number for parents. Family ahs remained in the room throughout the shift starting around 1000.
[2022-04-15 00:10] LABS: HIV AB/P24 AG SCREEN Non Reactive (Non Reactive)
[2022-04-15 05:41] LABS: Hematocrit 29.8 % (33.0-51.0); Hemoglobin 10.6 g/dL (11.5-16.0); Mean Corpuscular HGB 36.8 pg (26.0-34.0); Mean Corpuscular HGB Conc 35.6 g/dL (31.5-36.5); Mean Corpuscular Volume 104 fL (80-100); Mean Platelet Volume 11.2 fL (9.1-12.4); NRBC Auto 0.7 /100 WBC (0.0-0.2); Platelet Count 79 K/mm3 (150-400); RDW Coefficient Variation 20.2 % (11.7-14.2); RDW Standard Deviation 76.1 fL (35.1-46.3); Red Blood Cell Count 2.88 M/mm3 (3.80-5.20); White Blood Cell Count 14.28 K/mm3 (4.00-11.30)
[2022-04-15 05:53] LABS: International Normalized Ratio 2.92; Prothrombin Time Results 28.6 Sec (9.7-11.5)
[2022-04-15 06:29] LABS: Alanine Aminotransfer (ALT/SGP 346 U/L (12-78); Albumin, Blood 2.3 g/dL (3.4-5.0); Albumin/Globulin Ratio 0.8 (0.8-1.8); Alk Phos 126 U/L (50-136); Anion Gap 21 mmol/L (6-16); Aspartate Aminotrans (AST/SGOT 4096 U/L (12-37); Bilirubin, Total 15.8 mg/dL (0.1-1.0); Blood Urea Nitrogen 21 mg/dL (8-24); Bun/Creatinine Ratio 5.7 (12.0-20.0); CO2, Blood 20 mmol/L (21-32); Calcium, Blood 8.9 mg/dL (8.5-10.1); Chloride, Blood 80 mmol/L (98-108); Creatinine, Blood 3.68 mg/dL (0.40-1.00); Globulin, Blood 2.8 g/dL (2.2-4.0); Glomerular Filtration Rate 16 (60-); Glucose, Blood 214 mg/dL (70-99); Phosphorus, Blood 4.3 mg/dL (2.5-4.9); Potassium, Blood 3.3 mmol/L (3.5-5.5); Sodium, Blood 121 mmol/L (136-145); Total Protein, Blood 5.1 g/dL (6.4-8.2); Triglycerides 537 mg/dL (30-140)
[2022-04-15 06:33] LABS: BAND PERCENT MAN 3 % (0-8); BASOPHILS PERCENT MAN 0 % (0-2); EOSINOPHILS PERCENT MAN 0 % (0-6); LYMPHOCYTES ABSOLUTE MAN 1.71 K/mm3 (0.84-5.20); LYMPHOCYTES PERCENT MAN 12 % (21-46); MONOCYTES ABSOLUTE MAN 0.42 K/mm3 (0.16-1.47); MONOCYTES PERCENT MAN 3 % (4-13); NEUTROPHILS ABSOLUTE MAN 12.13 K/mm3 (1.96-9.15); SEG NEUTROPHILS PERCENT MAN 82 % (41-73); TOTAL CELLS COUNTED 100
--- NOTE | 2022-04-15 07:09 | NUR ---
PT ADM FOR ETOH WD- AMS, HALLUC, TREMOR, NV INTUBATED AND SEDATED ON 100% FI02 AT PRESENT WITH LEVO AND VASO FOR BP- DOES NOT FOLLOW COMMANDS/ NO MOVEMENT- RESTRAINT ORDER DC AT 0600, SLUGGISH PUPILS WITH +COUGH WITH DEEP SUCTION, NO RESPONSE TO PAIN, VOICE. VS WITH TACHYNEA OF RR30, CLEAR LUNGS, SINUS TACH W HR120, TMAX 101.3, GEN EDEMA W JAUNDICED SKIN SCLERA, NO BM- LACTULOSE WA IS ONGOING, MINIMAL UO OF 60ML X 12H. ONE DOSE ATIVAN GIVEN FOR AGITATION. PRONE X12H ENDING AT 0800 (ORDER FOR 16H). 0500 CXR ENDORSED TO AM NURSE WHEN PT IS MADE SUPINE. FALL AND SAFETY PRECAUTIONS OBSERVED
--- NOTE | 2022-04-15 10:46 | NUR ---
PT INTUBATED AND SEDATED WITH PROPOFOL. NO RESPONSE TO NOXIOUS STIMULUS. SEDATION ON TO KEEP PT COMFORTABLE WHILE PRONED. DR. DELGADO WANTS TO KEEP PT PRONED FOR NOW D/T FIO2 100% AND SPO2 85% AFTER SLIGHT REPOSITIONING. NO ELECTROLYTE REPLACEMENT AT THIS TIME PER DR. DELGADO FAMILY HAS DECIDED NOT TO ESCALATE CARE AND POSSIBLEY TRANSITION TO COMFORT CARE.
--- NOTE | 2022-04-15 11:39 | NUR ---
Sister at bedside awaiting pt daughters to come in. review of care placed comfort quilt. they want a chaplian for the patients daughters. Notified chaplian.
--- NOTE | 2022-04-15 15:01 | NUR ---
After being called in by Palliative Care RN Parisa, I visit with the family. The rm is pack with family members and several are tearful. Some family request prayer for healing and others are saying there is no medical hope a meaningful recovery. I speak to the issues the family is struggling with as well as conduct a life review as I highlight those beautiful characteristics that the patient possess. I also provide theological insights to the many beliefs that are in the room and provide prayer. I will continue to remain available to family.
--- NOTE | 2022-04-15 18:10 | NUR ---
SUMMARY PT INTUBATED AND SEDATED. REMAINS PRONED PER DR. DELGADO. AWAITING FAMILY ARRIVING FROM OUT OF TOWN TO SEE PT. PT DESATS WITH ANY REPOSITIONING AND CONCERNED THAT IF PLACED BACK SUPINE PT WOULD DECLINE BEFORE FAMILY ARRIVES. ON LEVOPHED AND VASOPRESSIN. NO CHANGE TO IVF TODAY. FAMILY HAS DECIDED NO ESCALATION OF CARE, DNR, AND POSSIBLEY COMFORT CARE AFTER FAMILY HAS BEEN IN TO SEE HER. PALLIATIVE CARE AND ALUMINUM FABRICATION SUPERVISOR IN TO SUPPORT FAMILY T/O THE DAY. NO OTHER CHANGES.
--- NOTE | 2022-04-15 21:10 | NUR ---
ASSUMPTION OF CARE/ASSESSMENT: ASSUMED CARE OF PT AT 1900. PT IS CURRENTLY INTUBATED AND SEDATED WITH VENT SETTINGS AC/PC RATE- 16, PEEP-25, AND FIO2- 100%. LUNG SOUNDS ARE CRACKLES IN UPPER BASES BILATERALLY WITH WHEEZES IN LOWER LOBES BILATERALLY; SPO2 90<. PT ST ON ON MONITOR WITH HR 110 AND SBP 110'S. LEVO GTT @ 15 MCG, VASO GTT 0.04 UNITS, AND PROPOFOL GTT 30 MCG. PT IS UNRESPONSIVE TO ALL STIMULI AND NO MOVEMENTS ARE NOTED. PT EYELIDS ARE VERY EDEMATOUS. UNABLE TO LISTEN TO BOWEL SOUNDS D/T PT BEING PRONED. OGT IN PLACE. SKIN IS YELLOW, PPP X 4, AND CAP REFIL < [address] SEC[address]DS. TEMP ADAMS IN PLACE AND DRAINING TO GRAVITY. MANY FAMILY MEMBERS AT BEDSIDE, ALL UPDATED ON PT'S CONDITION, NO QUESTIONS AT THIS TIME. PT HEAD REPOSITIONED AND TUNRED TO THE RIGHT. PT HAS RIJ AND JENNY POWERGLIDE. WILL CONTINUE TO MONITOR.
--- NOTE | 2022-04-16 01:09 | NUR ---
UPDATE: RECENT CBG WAS 262; CALL PLACED TO DR NAVARRO REGARDING D10 DRIP. VERBAL ORDERS TO PLACE DRIP ON STANDBY AND CONTINUE TO MONITOR CBG FOR CONTINUED NEED FOR D 10 DRIP RECIEVED AT THIS TIME. D10 DRIP PLACED ON STANDBY AT THIS TIME.
[2022-04-16 04:12] LABS: Bun/Creatinine Ratio 5.4 (12.0-20.0); Creatinine, Blood 4.43 mg/dL (0.40-1.00); Phosphorus, Blood 4.3 mg/dL (2.5-4.9); Potassium, Blood 3.5 mmol/L (3.5-5.5)
--- NOTE | 2022-04-16 06:05 | NUR ---
SHIFT SUMMARY: PT REMAINS INTUBATED AND SEDATED WITH VENT SETTINGS PC 14/25, RATE-16, AND FIO2 100%. PROPOFOL GTT @ 30 MCG, VASO GTT 0.04, AND LEVO GTT @ 8 MCG. PT CBG REMAIN 180<, SO D10 GTT CONTINUES ON STAND-BY SINCE 0100. PT TOELRATED HEAD TURNS X 3 THIS SHIFT WITH NO DROP IN SPO2 DURING REPOSITIONING. OLIGURIA CONTINUES WITH URINE OUTPUT OF 15 MLS THIS SHIFT. PT TUBE FEEDS ADVANCED TO 25 MLS/HOUR, WHICH IS GOAL RATE. VSS THROUGHOUT THE SHIFT. WILL CONTINUE TO MONITOR UNTIL ONCOMING RN ARRIVES.
[2022-04-16 12:53] LABS: International Normalized Ratio 3.2; Prothrombin Time Results 31.1 Sec (9.7-11.5)
[2022-04-16 12:55] LABS: Albumin, Blood 1.9 g/dL (3.4-5.0); Albumin/Globulin Ratio 0.6 (0.8-1.8); Bilirubin, Direct 11.3 mg/dL (0.0-0.3); Bilirubin, Indirect 2.9 mg/dL (0.1-0.7); Bilirubin, Total 14.2 mg/dL (0.1-1.0); Total Protein, Blood 4.9 g/dL (6.4-8.2)
--- NOTE | 2022-04-16 12:59 | NUR ---
PT TRANSFERED FROM MEDICAL FLOOR THIS AM, PCU STATUS. PT IS ONLY ORIENTED TO SELF. CONTINUOUSLY TAKING AIRVO OFF DESPITE REORIENTATION EFFORTS AND 1:1 SITTER. PT SEEMS MORE AGITATED WITH 1:1 SITTER. PLACED IN WRIST RESTRAINTS DUE TO PT DESATING TO 79% WHILE AIRVO IS OFF. HOME CAREGIVER CAME IN AND WAS ABLE TO CONVINCE PT TO TAKE SOME PO MEDS. PT DID WELL WITH PO MEDS AND WATER BUT GETS TIRED EASILY. EVEN WITH CAREGIVER AT BEDSIDE PT CONTINUES TO PICK AT LINES, CORDS, AND LINENS. UNABLE TO D/C RESTRAINTS DUE TO THIS.
--- NOTE | 2022-04-16 18:42 | NUR ---
SUMMARY PT UNPRONED THIS AM. SPO2 MAINTAINING IN THE UPPER 90'S. FIO2 DECREASED TO 70 THEN TO [address] DELGADO OK WITH LOWERING PEEP BY 2 IF SATS STAY IN THE 90'S TONIGHT. ATTEMPTED TO TURN VASOPRESSIN OFF BUT WAS NOT SUCCESSFUL. STILL ON LEVOPHED WELL. SOME LABS IMPROVED TODAY SO FAMILY IS WANTING TO GIVE PT SOME MORE TIME TO SEE IF SHE IMPROVES. A LOT OF SUPPORTIVE FAMILY AT BEDSIDE ALL DAY.
--- NOTE | 2022-04-16 19:00 | NUR ---
ASSUMED CARE ASSUMED CARE OF PATIENT. REMAINS INTUBATED- AC/PC RATE 16, PI 14, PEEP 25, FIO2 60%. SEDATED WITH PROPOFOL AT 30MCG/KG/MIN. LEVOPHED AT 6MCG/MIN AND VASOPRESSIN AT 0.04UNITS/MIN TO MAINTAIN MAP >65. MONITOR SHOWS ST, RATE 110-120s. OG WITH TUBE FEEDING PER ORDER. ADAMS PATENT AND DRAINING TO GRAVITY- SCANT URINE. RECTAL TUBE IN PLACE WITH LIQUID BROWN STOOL LR INFUSING AT 125MLS/HR. SEE SHIFT ASSESSMENT FOR FULL ASSESSMENT.
[2022-04-17 05:59] LABS: Bun/Creatinine Ratio 6.6 (12.0-20.0); Calcium, Blood 7.8 mg/dL (8.5-10.1); Creatinine, Blood 5.19 mg/dL (0.40-1.00); Potassium, Blood 4.4 mmol/L (3.5-5.5)
--- NOTE | 2022-04-17 06:24 | NUR ---
SHIFT SUMMARY NO ACUTE CHANGES. VENTILATOR SETTINGS NOW AC/PC 16, PI 14, PEEP 21, FIO2 60%. PROPOFOL AT 15MCG/KG/MIN. CONTINUES TO BE UNRESPONSIVE TO NOXIOUS STIMULI, BUT DOES OVERBREATHE THE VENTILATOR. NO SPONTANEOUS MOVEMENT NOTED. LEVOPHED TITRATED TO KEEP MAP >65- NOW INFUSING AT 6MCG/MIN. VASOPRESSIN AT 0.04UNITS/MIN. LR AT 125MLS/HR. D10 AT 75MLS/HR PER ORDER. TUBE FEEDING AT GOAL RATE OF 25MLS/HR. NO S/S OF GI DISTRESS/INTOLERANCE. ADAMS WITH ONLY SCANT URINE. RECTAL TUBE IN PLACE WITH MINIMAL LIQUID BROWN STOOL. CALL OUT TO MD AT THIS TIME TO REPORT CRITICAL AND ABNORMAL LAB VALUES. FAMILY AT BEDSIDE. WILL REPORT TO ONCOMING RN WHEN AVAILABLE.
[2022-04-17 11:08] LABS: HBSAG SCREEN Negative (Negative); HCV AB Reactive (Non Reactive); HEP A AB, IGM Negative (Negative); HEP B CORE AB, TOT Negative (Negative); HEPATITIS C QUANTITATION HCV Not Detected IU/mL (.)
[2022-04-17 13:27] LABS: International Normalized Ratio 3.42; Prothrombin Time Results 33.1 Sec (9.7-11.5)
[2022-04-17 13:39] LABS: Albumin, Blood 1.8 g/dL (3.4-5.0); Albumin/Globulin Ratio 0.6 (0.8-1.8); Bilirubin, Direct 10.8 mg/dL (0.0-0.3); Bilirubin, Indirect 1.9 mg/dL (0.1-0.7); Bilirubin, Total 12.7 mg/dL (0.1-1.0); Globulin, Blood 2.9 g/dL (2.2-4.0); Total Protein, Blood 4.7 g/dL (6.4-8.2)
--- NOTE | 2022-04-17 18:30 | NUR ---
SUMMARY PT REMAINS INTUBATED. OFF SEDATION FOR AWHILE TODAY WITHOUT ANY NEURO CHANGES. AMMONIA 155 DESPITE LACTULOSE. WENT FOR CT OF HEAD THIS AFTERNOON. ROCURONIUM GIVEN AFTER SEDATION WAS INCREASED FOR TRANSPORT TO CT. DR. SINGLETARY WAS CONSULTED TODAY. THIS EVENING BP IS DROPPING AND NOW UP TO 25MCG OF LEVOPHED. FAMILY HAS DECIDED TO NOT ESCALATE CARE ANY FARTHER. WE WILL KEEP IV GTTS AT THE CURRENT RATES AND VENTILATOR AT CURRENT SETTINGS. LOTS OF SUPPORTIVE FAMILY AT BEDSIDE T/O THE DAY.
--- NOTE | 2022-04-17 21:39 | NUR ---
ASSUMED CARE AT 1900 PATIENT IS INTUBATED NO SEDATION AT THIS TIME. PUPILS 4+ AND SLUGGISH, EXTREMITIES FLACCID. NO COUGH OR GAG WHEN SUCTION. 02 SATS 70s, VENT SETTINGS AC PC FI02 60%. PER FAMILY AND DR. DELGADO WE WILL NO ESCALATE CARE AND VENT SETTINGS WILL STAY. HR SR 80, BP HYPOTENSIVE WITH MAP 45 TRENDING DOWN WITH LEVO AND VASO INFUSING, ALSO NOT TO ESCALATE MEDICATIONS PER FAMILY AND DR. DELGADO. FAMILY IS AT BEDSIDE AND AWARE OF PATIENT CONDITION AND OUTCOME OF NOT ESCALATING CARE. TUBE FEED STOPPED PER DR. DELGADO. TEMP ADAMS PATENT AND DRAINING SCANT AMOUNT OF TEA COLORED URINE TO GRAVITY. PATIENT APPEARS COMFORTABLE AT THIS TIME.
--- NOTE | 2022-04-17 23:16 | NUR ---
PER FAMILY REQUEST LEVO AND VASO TURNED OFF. PATIENT REMAINS ON VENT.
--- NOTE | 2022-04-18 00:24 | NUR ---
PATIENT PASSED AT 2330 04/17. FAMILY AT BEDSIDE. NOTIFIED OF PATIENTS PASSING. FATHER TOOK ALL PATIENT BELONGINGS WITH HIM INCULDING CELL PHONE.
== END 2022-04-17 23:30 | DRG 896 ==
LOC: ER 22:13 → ERHOLD 04-13 00:24 → ICUW 04-13 00:24
PROVIDERS: Emergency Medicine; Family Medicine; Internal Medicine; Internal Medicine Critical Care Medicine; Specialist; ADMIT Student in an Organized Health Care Education/Training Program
PROC: 02H633Z Insertion of Infusion Device into Right Atrium, Percutaneous Approach (ICD-10-PCS; principal; 2022-04-13)
PROC: 0DH67UZ Insertion of Feeding Device into Stomach, Via Natural or Artificial Opening (ICD-10-PCS; 2022-04-13)
PROC: 3E033XZ Introduction of Vasopressor into Peripheral Vein, Percutaneous Approach (ICD-10-PCS; 2022-04-13)
PROC: 3E03329 Introduction of Other Anti-infective into Peripheral Vein, Percutaneous Approach (ICD-10-PCS; 2022-04-13)
PROC: 0T9B70Z Drainage of Bladder with Drainage Device, Via Natural or Artificial Opening (ICD-10-PCS; 2022-04-13)
PROC: 4A133R1 Monitoring of Arterial Saturation, Peripheral, Percutaneous Approach (ICD-10-PCS; 2022-04-13)
PROC: 5A1955Z Respiratory Ventilation, Greater than 96 Consecutive Hours (ICD-10-PCS; 2022-04-13)
PROC: 0BH17EZ Insertion of Endotracheal Airway into Trachea, Via Natural or Artificial Opening (ICD-10-PCS; 2022-04-13)
PROC: 4A033R1 Measurement of Arterial Saturation, Peripheral, Percutaneous Approach (ICD-10-PCS; 2022-04-13)
DX: F10.231 Alcohol dependence with withdrawal delirium (principal); A41.9 Sepsis, unspecified organism; R65.21 Severe sepsis with septic shock; J69.0 Pneumonitis due to inhalation of food and vomit; J18.9 Pneumonia, unspecified organism; N17.0 Acute kidney failure with tubular necrosis; K85.90 Acute pancreatitis without necrosis or infection, unspecified; J80 Acute respiratory distress syndrome; K76.7 Hepatorenal syndrome; E15 Nondiabetic hypoglycemic coma; E87.1 Hypo-osmolality and hyponatremia; D68.9 Coagulation defect, unspecified; E87.20 Acidosis, unspecified; Z51.5 Encounter for palliative care; Z66 Do not resuscitate; I10 Essential (primary) hypertension; R16.0 Hepatomegaly, not elsewhere classified; K70.10 Alcoholic hepatitis without ascites; E87.6 Hypokalemia; D69.6 Thrombocytopenia, unspecified; E87.5 Hyperkalemia; K76.82 Hepatic encephalopathy; K72.90 Hepatic failure, unspecified without coma; E83.42 Hypomagnesemia; B95.61 Methicillin susceptible Staphylococcus aureus infection as the cause of diseases classified elsewhere; Z98.51 Tubal ligation status; Z79.899 Other long term (current) drug therapy
CPT/HCPCS: 31500; 36415; 36556; 36600; 51702; 70450; 71045; 76705; 80048; 80053; 80076; 81001; 81025; 82140; 82330; 82803; 82947; 83690; 83735; 84100; 84145; 84478; 85025; 85610; 86704; 86708; 86803; 87040; 87070; 87077; 87086; 87186; 87205; 87340; 87389; 93306; 94002; 94003; 94640; 94664; 94762; 96374; 96375; 96376; 99285-25; A9270; C1751; C9113; G0480; J0610; J1610; J1650; J1720; J2060; J2405; J2543; J2560; J2704; J3411; J3415; J3475; J7050; J7060; J7070; J7120; J7512; J7799; P9047